=== PATIENT | male | born 1955 | race Hispanic/Latino ===

== ENCOUNTER 2018-03-05 22:33 | Observation (INO) | payer SELFPAY ==
--- NOTE | 2018-03-05 23:28 | RAD REPORT ---
EXAM DESCRIPTION: RAD - Chest Single View - 03/05/2018 11:18 pm CLINICAL HISTORY: Chest pain. COMPARISON: None. FINDINGS: Portable technique limits examination quality. Elevated right hemidiaphragm is noted, without clear etiology. The lungs are grossly clear. Trace lef t pleural fluid is suspected. The heart is upper limit of normal in size. No displaced fractures.
[2018-03-05] MEDS ORDERED: METOPROLOL TAR 50 MG TAB ONE (23:38)
[2018-03-05] MEDS ORDERED: NA CHLORIDE 0.9% 1,000 ML ONE (23:38)
[2018-03-05] MEDS ORDERED: ASPIRIN 81 MG CHEWABLE TABLET ONE (23:38)
[2018-03-05] MEDS ORDERED: FAMOTIDINE 20 MG TAB ONE (23:41)
--- NOTE | 2018-03-06 00:07 | EDPHYS ---
Physician Documentation [facility] Name: Binu Vitale Age: 62 yrs Sex: Male : 1955 Arrival Date: 03/05/2018 Time: 22:41 Bed 26 Private MD: ED Physician Jose Rafael Gallagher HPI: 03/06 00:01 This 62 yrs old Male presents to ER via Ambulatory with complaints of Chest chloe Pain. 00:01 The patient or guardian reports chest pain that is located primarily in the substernal chloe area, epigastric area, anterior chest wall, left back , flank. Onset: today, yesterday. The pain radiates to Associated signs and symptoms: The patient has no apparent associated signs or symptoms. The chest pain is described as burning, dull. Duration: The patient or guardian reports a single episode, that is still ongoing. Modifying factors: The symptoms are alleviated by nothing. the symptoms are aggravated by nothing. Severity of pain: At its worst the pain was mild moderate in the emergency department the pain has improved mildly. Historical: - Allergies: 03/05 22:43 No Known Allergies; aa1 - PMHx: 22:43 Anxiety; Depression; Hypertension; Gastric Reflux; Myocardial infarction; TIA; aa1 - PSHx: 22:43 Hernia repair; aa1 - Immunization history:: Flu vaccine is not up to date. - Social history:: Smoking status: Patient/guardian denies using tobacco. - Family history:: not pertinent. ROS: 03/06 00:01 Constitutional: Negative for fever, chills, and weight loss, Eyes: Negative for injury, chloe pain, redness, and discharge, ENT: Negative for injury, pain, and discharge, Neck: Negative for injury, pain, and swelling, Respiratory: Negative for shortness of breath, cough, wheezing, and pleuritic chest pain, Abdomen/GI: Negative for abdominal pain, nausea, vomiting, diarrhea, and constipation, : Negative for injury, bleeding, discharge, and swelling, MS/Extremity: Negative for injury and deformity, Skin: Negative for injury, rash, and discoloration, Neuro: Negative for headache, weakness, numbness, tingling, and seizure, Psych: Negative for depression, anxiety, suicide ideation, homicidal ideation, and hallucinations, Allergy/Immunology: Negative for hives, rash, and allergies, Endocrine: Negative for neck swelling, polydipsia, polyuria, polyphagia, and marked weight changes, Hematologic/Lymphatic: Negative for swollen nodes, abnormal bleeding, and unusual bruising. Cardiovascular: Positive for chest pain. Abdomen/GI: Positive for abdominal pain, abdominal cramps. Exam: 00:03 Constitutional: This is a well developed, well nourished patient who is awake, alert, chloe and in no acute distress. Head/Face: Normocephalic, atraumatic. Eyes: Pupils equal round and reactive to light, extra-ocular motions intact. Lids and lashes normal. Conjunctiva and sclera are non-icteric and not injected. Cornea within normal limits. Periorbital areas with no swelling, redness, or edema. ENT: Nares patent. No nasal discharge, no septal abnormalities noted. Tympanic membranes are normal and external auditory canals are clear. Oropharynx with no redness, swelling, or masses, exudates, or evidence of obstruction, uvula midline. Mucous membranes moist. Neck: Trachea midline, no thyromegaly or masses palpated, and no cervical lymphadenopathy. Supple, full range of motion without nuchal rigidity, or vertebral point tenderness. No Meningismus. Chest/axilla: Normal chest wall appearance and motion. Nontender with no deformity. No lesions are appreciated. Cardiovascular: Regular rate and rhythm with a normal S1 and S2. No gallops, murmurs, or rubs. Normal PMI, no JVD. No pulse deficits. Respiratory: Lungs have equal breath sounds bilaterally, clear to auscultation and percussion. No rales, rhonchi or wheezes noted. No increased work of breathing, no retractions or nasal flaring. Abdomen/GI: Soft, non-tender, with normal bowel sounds. No distension or tympany. No guarding or rebound. No evidence of tenderness throughout. Back: No spinal tenderness. No costovertebral tenderness. Full range of motion. Male : Normal genitalia with no discharge or lesions. Skin: Warm, dry with normal turgor. Normal color with no rashes, no lesions, and no evidence of cellulitis. MS/ Extremity: Pulses equal, no cyanosis. Neurovascular intact. Full, normal range of motion. Neuro: Awake and alert, GCS 15, oriented to person, place, time, and situation. Cranial nerves II-XII grossly intact. Motor strength 5/5 in all extremities. Sensory grossly intact. Cerebellar exam normal. Normal gait. Psych: Awake, alert, with orientation to person, place and time. Behavior, mood, and affect are within normal limits. 00:03 Musculoskeletal/extremity: DVT Exam: No signs of deep vein thrombosis. no pain, no swelling, no tenderness, negative Homans' sign noted on exam, no appreciated bluish discoloration, no erythema, no increased warmth. Vital Signs: 03/05 22:43 BP 142 / 91; Pulse 78; Resp 20; Temp 97.3; Pulse Ox 98% on R/A; Weight 91.17 kg; Height aa1 5 ft. 8 in. (172.72 cm); Pain 7/10; 03/06 00:29 BP 149 / 98; Pulse 70; Resp 14; Pulse Ox 97% on R/A; kr2 01:00 BP 118 / 87; Pulse 67; Resp 17; Pulse Ox 98% on R/A; rk2 02:55 BP 131 / 95; Pulse 72; Resp 17; Pulse Ox 98% on R/A; rk2 03/05 22:43 Body Mass Index 30.56 (91.17 kg, 172.72 cm) aa1 MDM: 03/05 22:56 Patient medically screened. [facility] 03/06 00:04 Data reviewed: vital signs, nurses notes, lab test result(s), EKG, radiologic studies. [facility] 03/05 22:58 Order name: Basic Metabolic Panel; Complete Time: 01:15 [facility] 03/05 22:58 Order name: BNP; Complete Time: 01:15 [facility] 03/05 22:58 Order name: CBC with Diff; Complete Time: 00:43 [facility] 03/05 22:58 Order name: Ckmb; Complete Time: 01:15 [facility] 03/05 22:58 Order name: CPK; Complete Time: 01:15 [facility] 03/05 22:58 Order name: LFT's; Complete Time: 01:15 [facility] 03/05 22:58 Order name: Magnesium; Complete Time: 01:15 [facility] 03/05 22:58 Order name: PT-INR; Complete Time: 00:43 [facility] 03/05 22:58 Order name: Ptt, Activated; Complete Time: 00:43 [facility] 03/05 22:58 Order name: Troponin (emerg Dept Use Only); Complete Time: 01:15 [facility] 03/05 22:58 Order name: Lipase; Complete Time: 01:15 [facility] 03/06 00:01 Order name: Urine Culture [facility] 03/06 00:43 Order name: Urine Dipstick--Ancillary (enter results) [facility] 03/06 02:01 Order name: Urine Dipstick-Ancillary; Complete Time: 02:19 [facility] 03/05 22:58 Order name: XRAY Chest (1 view); Complete Time: 00:01 [facility] 03/05 22:58 Order name: EKG; Complete Time: 22:58 [facility] 03/05 22:58 Order name: Cardiac monitoring; Complete Time: 23:47 [facility] 03/05 22:58 Order name: EKG - Nurse/Tech; Complete Time: 23:47 [facility] 03/05 22:58 Order name: IV Saline Lock; Complete Time: 23:47 [facility] 03/06 00:01 Order name: CT Aorta for Dissection [facility] 03/06 00:15 Order name: CONS Physician Consult [facility] 03/05 22:58 Order name: Labs collected and sent; Complete Time: 23:47 [facility] 03/05 22:58 Order name: O2 Per Protocol; Complete Time: 23:47 [facility] 03/05 22:58 Order name: O2 Sat Monitoring; Complete Time: 23:47 [facility] 03/05 22:58 Order name: Urine Dipstick-Ancillary (obtain specimen); Complete Time: 00:29 [facility] Administered Medications: 03/05 23:46 Drug: NS 0.9% 1000 ml Route: IV; Rate: 125 ml/hr; Site: right antecubital; kr2 23:46 Drug: Aspirin Chewable Tablet 324 mg Route: PO; 2 03/06 00:18 Follow up: Response: No adverse reaction [facility] 03/05 23:46 Drug: Pepcid 20 mg Route: IVP; Site: right antecubital; kr2 03/06 00:17 Follow up: Response: No adverse reaction [facility] 03/05 23:46 Drug: Lopressor (metoprolol TARTRATE) 50 mg Route: PO; 2 03/06 00:17 Follow up: Response: No adverse reaction kr2 00:17 Not Given (medication not available): fentaNYL (PF) 25 mcg IVP once kr2 00:17 CANCELLED (med not available): fentaNYL (PF) 25 mcg IVP once kr2 00:18 Drug: Zofran 4 mg Route: IVP; Site: right antecubital; kr2 01:27 Follow up: Response: No adverse reaction rk2 00:18 Drug: ProTONIX 40 mg Route: IVP; Site: right antecubital; kr2 01:27 Follow up: Response: No adverse reaction rk2 00:24 Drug: morphine 4 mg Route: IVP; Site: right antecubital; kr2 01:26 Follow up: Response: No adverse reaction rk2 Disposition: 03/06/18 00:06 Hospitalization ordered by Bailey Millard for Observation. Preliminary diagnosis are Other chest pain, Gastro-esophageal reflux disease, Anxiety disorder, unspecified. - Bed requested for Telemetry/MedSurg (observation). - Status is Observation. rk2 - Condition is Stable. - Problem is new. - Symptoms have improved. UTI on Admission? No Signatures: Dispatcher [employer] EDMS Marissa Josue RN RN kl Kern, Alissa, RN RN aa1 Jose Rafael Gallagher MD MD cha Reaves, Karey, RN RN kr2 Anca Childs RN RN rk2 Corrections: (The following items were deleted from the chart) 00:17 00:01 fentaNYL (PF) 25 mcg IVP once ordered. chloe kr2 01:24 00:06 Hospitalization Ordered by Bailey Millard MD for Observation. Preliminary kl diagnosis is Other chest pain; Gastro-esophageal reflux disease; Anxiety disorder, unspecified. Bed requested for Telemetry/MedSurg (observation). Status is Observation. Condition is Stable. Problem is new. Symptoms have improved. UTI on Admission? No. chloe 03:13 01:24 03/06/2018 00:06 Hospitalization Ordered by Bailey Millard MD for Observation. rk2 Preliminary diagnosis is Other chest pain; Gastro-esophageal reflux disease; Anxiety disorder, unspecified. Bed requested for Telemetry/MedSurg (observation). Status is Observation. Condition is Stable. Problem is new. Symptoms have improved. UTI on Admission? No. kl
--- NOTE | 2018-03-06 00:07 | ER ---
Nurse's Notes [facility] Name: Binu Vitale Age: 62 yrs Sex: Male : 1955 Arrival Date: 03/05/2018 Time: 22:41 Bed 26 Private MD: Diagnosis: Other chest pain;Gastro-esophageal reflux disease;Anxiety disorder, unspecified Presentation: 03/05 22:41 Presenting complaint: Patient states: CP and SOB for past several days. Reports the aa1 last time he had this he was told he had acid reflux. States, "When I lay down I feel like my food is coming up.". Transition of care: patient was not received from another setting of care. Onset of symptoms was March 02, 2018. Initial Sepsis Screen: Does the patient meet any 2 criteria? No. Patient's initial sepsis screen is negative. Does the patient have a suspected source of infection? No. Patient's initial sepsis screen is negative. Care prior to arrival: None. 22:41 Method Of Arrival: Ambulatory aa1 22:41 Acuity: BASHIR 3 aa1 Historical: - Allergies: 22:43 No Known Allergies; aa1 - PMHx: 22:43 Anxiety; Depression; Hypertension; Gastric Reflux; Myocardial infarction; TIA; aa1 - PSHx: 22:43 Hernia repair; aa1 - Immunization history:: Flu vaccine is not up to date. - Social history:: Smoking status: Patient/guardian denies using tobacco. - Family history:: not pertinent. Screenin:00 Abuse screen: Denies threats or abuse. Denies injuries from another. Nutritional kr2 screening: No deficits noted. Tuberculosis screening: No symptoms or risk factors identified. Fall Risk None identified. Assessment: 23:00 General: Appears in no apparent distress. comfortable, well groomed, well developed, kr2 well nourished, Behavior is cooperative, anxious. Pain: Complains of pain in diaphragm, xyphoid area and mid-sternal area Pain radiates to back Pain currently is 6 out of 10 on a pain scale. Quality of pain is described as squeezing, Pain began suddenly, Is continuous, Alleviated by nothing. Neuro: Level of Consciousness is awake, alert, obeys commands, Oriented to person, place, time, situation. Cardiovascular: Capillary refill < 3 seconds in bilateral fingers Patient's skin is warm and dry. Rhythm is sinus rhythm. Respiratory: Airway is patent Respiratory effort is even, unlabored, Respiratory pattern is regular, symmetrical. GI: Abdomen is round non-distended, Bowel sounds present X 4 quads. Abd is soft X 4 quads Abdomen is tender to palpation in epigastric area. GI: Reports bloating, gaseousness, nausea, he has problems with reflux. : No signs and/or symptoms were reported regarding the genitourinary system. Denies burning with urination. EENT: Nares are clear Oral mucosa is moist. Derm: Skin is intact, is healthy with good turgor, Skin is pink, warm \\T\\ dry. Musculoskeletal: Circulation, motion, and sensation intact. 03/06 00:28 Reassessment: Patient appears in no apparent distress at this time. Patient and/or kr2 family updated on plan of care and expected duration. Pain level reassessed. Patient is alert, oriented x 3, equal unlabored respirations, skin warm/dry/pink. 01:02 Reassessment: Taken to CT by tech. rk2 01:25 Reassessment: Pt. returned from CT. rk2 03:11 Reassessment: Called report to receiving KALI Block... pt. transported to room by tech in rk2 wheelchair. Vital Signs: 03/05 22:43 BP 142 / 91; Pulse 78; Resp 20; Temp 97.3; Pulse Ox 98% on R/A; Weight 91.17 kg; Height aa1 5 ft. 8 in. (172.72 cm); Pain 7/10; 03/06 00:29 BP 149 / 98; Pulse 70; Resp 14; Pulse Ox 97% on R/A; kr2 01:00 BP 118 / 87; Pulse 67; Resp 17; Pulse Ox 98% on R/A; rk2 02:55 BP 131 / 95; Pulse 72; Resp 17; Pulse Ox 98% on R/A; rk2 03/05 22:43 Body Mass Index 30.56 (91.17 kg, 172.72 cm) aa1 ED Course: 03/05 22:41 Patient arrived in ED. aa1 22:43 Triage completed. aa1 22:44 Arm band placed on left wrist. Patient placed in an exam room, on a stretcher. aa1 22:56 Jose Rafael Gallagher MD is Attending Physician. chloe 23:00 Patient has correct armband on for positive identification. Bed in low position. Call kr2 light in reach. Side rails up X2. Adult w/ patient. surveillance monitor on. Pulse ox on. NIBP on. Door closed. Warm blanket given. Head of bed elevated. 23:00 Patient maintains SpO2 saturation greater than 95% on room air. kr2 23:17 X-ray completed. Portable x-ray completed in exam room. Patient tolerated procedure kw well. 23:17 XRAY Chest (1 view) In Process Unspecified. EDMS 23:36 Zulma Coronel, RN is Primary Nurse. kr2 03/06 00:05 Bailey Milladr MD is Hospitalizing Provider. chloe 00:15 Radiology exam delayed due to lab results not completed at this time. (BUN/Creatinine). vr 00:30 Urine collected: clean catch specimen, clear. aa1 00:59 Primary Nurse role handed off by Zulma Coronel, RN rg2 01:23 Anca Childs, KALI is Primary Nurse. rk2 01:28 CT Aorta for Dissection Sent. rk2 03:12 No provider procedures requiring assistance completed. Patient admitted, IV remains in rk2 place. Administered Medications: 03/05 23:46 Drug: NS 0.9% 1000 ml Route: IV; Rate: 125 ml/hr; Site: right antecubital; kr2 23:46 Drug: Aspirin Chewable Tablet 324 mg Route: PO; kr2 03/06 00:18 Follow up: Response: No adverse reaction 2 03/05 23:46 Drug: Pepcid 20 mg Route: IVP; Site: right antecubital; kr2 03/06 00:17 Follow up: Response: No adverse reaction kr2 03/05 23:46 Drug: Lopressor (metoprolol TARTRATE) 50 mg Route: PO; kr2 03/06 00:17 Follow up: Response: No adverse reaction kr2 00:17 Not Given (medication not available): fentaNYL (PF) 25 mcg IVP once kr2 00:17 CANCELLED (med not available): fentaNYL (PF) 25 mcg IVP once kr2 00:18 Drug: Zofran 4 mg Route: IVP; Site: right antecubital; kr2 01:27 Follow up: Response: No adverse reaction rk2 00:18 Drug: ProTONIX 40 mg Route: IVP; Site: right antecubital; kr2 01:27 Follow up: Response: No adverse reaction rk2 00:24 Drug: morphine 4 mg Route: IVP; Site: right antecubital; kr2 01:26 Follow up: Response: No adverse reaction rk2 Outcome: 00:06 Decision to Hospitalize by Provider. chloe 03:12 Admitted to Tele rk2 03:12 Admitted to Tele accompanied by tech, via wheelchair. 03:12 Condition: good 03:12 Instructed on the need for admit. 03:13 Patient left the ED. rk2 Signatures: Dispatcher [employer] EDMS Tita Workman2 Cecy Granda RN RN aa1 Jose Rafael Gallagher MD MD cha Davis, Victoria vr Whitley, Kimberlee kw Reaves, Karey RN RN kr2 Anca Childs RN RN rk2 Corrections: (The following items were deleted from the chart) 03/05 23:47 23:46 Pepcid 20 mg IVP in left antecubital kr2 kr2 23:47 23:46 NS 0.9% 1000 ml IV at 125 ml/hr in left antecubital kr2 kr2
[2018-03-06] MEDS ORDERED: MORPHINE 4 MG/ML SYR ONE (00:09)
[2018-03-06] MEDS ORDERED: ONDANSETRON 4 MG/2 ML VIAL ONE (00:09)
[2018-03-06] MEDS ORDERED: PANTOPRAZOLE 40 MG INJ ONE (00:10)
[2018-03-06 00:14] LABS: Protime INR 0.92
[2018-03-06 00:21] LABS: Absolute Lymphocytes (CBC) 2.6 K/uL (0.7-4.9); Absolute Monocytes 0.6 K/uL (0.1-1.3); Basophils % 0.6 % (0-1.3); Eosinophils % 1.6 % (0-4.4); Hematocrit 35.8 % (39.6-49.0); Lymphocytes % 41.4 % (15.3-44.8); MCH 23.8 pg (27.0-35.0); MCV 72.5 fL (80-100); MPV 8.3 fL (7.6-11.3); Monocytes % 8.8 % (3.3-12.3); RBC Red Blood Cell Count 4.95 M/uL (4.33-5.43)
[2018-03-06 00:49] LABS: Bicarbonate 23 mEq/L (21-31); Glucose Level 118 mg/dL (65-120); Lipase 56 U/L (22-51); Sodium Level 135 mEq/L (135-145)
[2018-03-06 00:51] LABS: CKMB Creatine Kinase MB 1.2 ng/ml (0.3-4.0)
[2018-03-06 00:55] LABS: ALT/SGPT 26 IU/L (10-60); AST/SGOT 24 IU/L (10-42); Albumin 3.7 g/dL (3.2-5.5); Alkaline Phosphatase 108 IU/L (42-121); BUN Blood Urea Nitrogen 22 mg/dL (6-20); Bilirubin Direct < 0.1 mg/dL (0-0.2); Bilirubin Total 0.4 mg/dL (0.3-1.2); Creatine Phosphokinase 44 IU/L (22-269); Protein, Total 6.9 g/dL (6.0-8.3)
[2018-03-06 02:00] LABS: Urine Glucose NEGATIVE (NEG)
[2018-03-06 02:01] LABS: Urine Blood NEGATIVE (NEG); Urine Protein NEGATIVE (NEG); Urine pH 5.5 (5.0-7.0)
--- NOTE | 2018-03-06 02:48 | P.HP ---
Certification for Inpatient Patient admitted to: Observation With expected LOS: <2 Midnights Practitioner: I am a practitioner with admitting privileges, knowledge of patient current condition, hospital course, and medical plan of care. Services: Services provided to patient in accordance with Admission requirements found in Title 42 Section 412.3 of the Code of Federal Regulations Patient History Date of Service: 03/06/18 Reason for admission: severe dispepsia, gastritis History of Present Illness: Mr Vitale is a 62 years old male with history of CAD, GERD who has recurrent epigastric pain on and off for the last 5 years. However, he came to ER today since the pain was significantly worse, radiated to his chest, pressure like. He has had nausea and vomiting, sometimes coffee-ground emesis. He denied any bloody or black stools, no bloody vomiting either. He has never seen a GI specialist. At my encounter the pain improved after receive pain medication, but still badder him some. No fever or chills. Allergies No Known Allergies Allergy (Unverified 03/06/18 00:25) - Past Medical/Surgical History -: CAD -: GERD -: Anxiety -: depression -: hernia repair - Family History Family History: Reviewed- Non-Contributory - Social History Smoking Status: Former smoker Alcohol use: No CD- Drugs: No Caffeine use: Yes Place of Residence: Home Review of Systems 10-point ROS is otherwise unremarkable Physical Examination - Physical Exam General: Alert, In no apparent distress HEENT: Atraumatic, PERRLA, Mucous membr. moist/pink, EOMI, Sclerae nonicteric Neck: Supple, 2+ carotid pulse no bruit, No LAD, Without JVD or thyroid abnormality Respiratory: Clear to auscultation bilaterally, Normal air movement Cardiovascular: Regular rate/rhythm, Normal S1 S2 Gastrointestinal: Normal bowel sounds, Tenderness (epigastic and RUQ.) Musculoskeletal: No tenderness Integumentary: No rashes Neurological: Normal gait, Normal speech, Normal strength at 5/5 x4 extr, Normal tone, Normal affect Lymphatics: No axilla or inguinal lymphadenopathy - Studies Laboratory Data (last 24 hrs) 03/05/18 23:30: PT 10.8, INR 0.92, APTT 26.2 03/05/18 23:30: WBC 6.3, Hgb 11.8 L, Hct 35.8 L, Plt Count 288 03/05/18 23:30: B-Natriuretic Peptide < 10 03/05/18 23:30: Sodium 135, Potassium 4.0, BUN 22 H, Creatinine 0.88, Glucose 118, Magnesium 2.0, Total Bilirubin 0.4, AST 24, ALT 26, Alkaline Phosphatase 108, Lipase 56 H Assessment and Plan - Problems (Diagnosis) (1) Dyspepsia Current Visit: Yes Status: Acute (2) GERD (gastroesophageal reflux disease) Current Visit: Yes Status: Acute Qualifiers: Esophagitis presence: with esophagitis Qualified Code(s): K21.0 - Gastro- esophageal reflux disease with esophagitis (3) Chest pain Current Visit: Yes Status: Acute Qualifiers: Chest pain type: other chest pain Qualified Code(s): R07.89 - Other chest pain; R07.8 - Other chest pain - Plan Mr Vitale will be admitted to the hospital due to dispepsia, chest pain and severe GERD. Will order PPI, keep him NPO until GI evaluation, for potential EGD. Hgb is low but definitively no need for transfusion. - Advance Directives Does patient have a Living Will: No Does patient have a Durable POA for Healthcare: No - Code Status/Comfort Care Code Status Assessed: Yes Code Status: Full Code
[2018-03-06] MEDS ORDERED: ONDANSETRON 4 MG/2 ML VIAL IV PRN (03:00)
[2018-03-06] MEDS: NA CHLORIDE 0.9% 1,000 ML IV SCH ×2 (03:00→13:00)
[2018-03-06] MEDS ORDERED: SODIUM CHLORIDE 0.9% 10ML INJ IV PRN (03:00)
[2018-03-06] MEDS: PANTOPRAZOLE 40 MG INJ IVP SCH ×2 (03:00→09:59)
[2018-03-06] MEDS: INSULIN -REGULAR HUMAN 50 UNIT/0.5 ML ML SQ SCH ×2 (07:30→11:30)
--- NOTE | 2018-03-06 08:41 | RAD REPORT ---
EXAM DESCRIPTION: CT - Angio Aorta For Dissection - 03/06/2018 7:29 am CLINICAL HISTORY: Chest pain radiating to the back. COMPARISON: None. TECHNIQUE: CT angiography of the aorta was performed with volume rendering. All CT scans are performed using dose optimization technique as appropriate and may include automated exposure control or mA/KV adjustment according to patient size. FINDINGS: A left aortic arch is present with normal branching pattern of the great vessels.No acute aortic finding is seen such as aneurysm, penetrating ulcer or dissection. The celiac axis, SMA, ERENDIRA and renal arteries are widely patent. No evidence of pulmonary embolism. The lungs are clear. Small axial hiatal hernia is seen. The liver demonstrates no focal mass or biliary dilatation.The spleen, pancreas, adrenal glands and k idneys are within normal limits for arterial phase imaging.18 mm low-density renal lesion on the righ t has the appearance of a benign cyst. No bowel obstruction, free fluid or abscess.Sigmoid diverticulosis coli is present without findings o f acute diverticulitis.No pathologic enlarged lymphadenopathy identified. No fracture or worrisome bone lesion seen.Large fat containing right inguinal hernia. Prominent degenerative change at L5-S1 noted. IMPRESSION: No acute aortic finding is demonstrated. Small axial hiatal hernia. Large right inguinal hernia containing fat.
--- NOTE | 2018-03-06 10:04 | EKG ---
Test Date: 2018-03-05 Test Time: 22:53:47 Spring Tacker: FAUSTO MEASUREMENT RESULTS: Intervals: Rate: 88 OK: 158 QRSD: 88 QT: 378 QTc: 457 [place]: P: -6 OK: 158 QRS: 2 T: 20 INTERPRETIVE STATEMENTS: Normal sinus rhythm Normal ECG No previous ECG available for comparison Electronically Signed On 03-06-18 10:02:57 CDT by Ashish Osei
--- NOTE | 2018-03-06 11:04 | TREADMILL ---
70% H.R.: 109 85% H.R.: 133 90% H.R.: 140 100% H.R.: 156 DX: CHEST PAIN Date of Study: 03/06/18 Ht: 5 8 Wt: 201 lb 0 oz Consulting Physician: MALINDA MEDICATIONS: NOVOLIN-R, ZOFRAN, PROTONIX. HISTORY: 62 YEAR OLD MALE WITH COMPLAINTS OF CHEST PAIN. MEDICAL HISTORY: ANXIETY, DEPRESSION, HYPERTENSION, GASTROENTESTINAL REFLUX DISEASE, MYOCARDIAL INFARCTION, TRANSIENT ISCHEMIC ATTACK PHYSICIAL EXAMINATION: RESTING B.P.: 136/93 RESTING H.R.: 66 RESTING EKG: NORMAL. PROTOCOL: MELODY ROUTINE EXERCISE TIME: 8:38 MAXIMUM HEART RATE: 133 85 % OF PREDICTED B.P. AT PEAK STRESS: 127/90 H.R. AT 1 MINUTE POST EXERCISE: 120 IMPRESSION: MELODY ROUTINE STOPPED DUE TO FATIGUE AND TARGET HEART RATE REACHED PER PROTOCOL. NO SUPRA VENTRICULAR TACHYCARDIA, NO VENTRICULAR TACHYCARDIA. OCCASIONAL PREMATURE VENTRICULAR COMPLEXES. NO SIGNIFICANT ST CHANGES WITH STRESS.
--- NOTE | 2018-03-06 11:12 | ECHO ---
HEIGHT: 5 ft 8 in WEIGHT: 201 lb 0 oz DATE OF STUDY: 03/06/[address]: Ashish Osei MD 2-DIMENSIONAL: YES M.MODE: YES DOPPLER: YES COLOR FLOW: YES TDS: NO PORTABLE: NO DEFINITY: NO BUBBLE STUDY: NO DIAGNOSIS: CHEST PAIN CARDIAC HISTORY: CATHERIZATION: SURGERY: PROSTHETIC VALVE: PACEMAKER: MEASUREMENTS (cm) DIASTOLIC (NORMALS) SYSTOLIC (NORMALS) IVSd 1.2 (0.6-1.2) LA Diam 3.7 (1.9-4.0) LVEF 76% LVIDd 4.8 (3.5-5.7) LVIDs 2.7 (2.0-3.5) %FS 45% LVPWd 1.2 (0.6-1.2) Ao Diam 4.0 (2.0-3.7) 2 DIMENSIONAL ASSESSMENT: RIGHT ATRIUM: NORMAL LEFT ATRIUM: NORMAL RIGHT VENTRICLE: NORMAL LEFT VENTRICLE: LEFT VENTRICULAR HYPERTROPHY TRICUSPID VALVE: NORMAL MITRAL VALVE: NORMAL PULMONIC VALVE: NORMAL AORTIC VALVE: NORMAL PERICARDIAL EFFUSION: NONE AORTIC ROOT: NORMAL LEFT VENTRICULAR WALL MOTION: NORMAL. DOPPLER/COLOR FLOW: MILD MITRAL REGURGITATION. COMMENTS: NORMAL LEFT VENTRICULAR EJECTION FRACTION. LEFT VENTRICULAR HYPERTROPHY. MILD MITRAL REGURGITATION. TECHNOLOGIST: JAME GARCIA [facility]
[2018-03-06] MEDS ORDERED: ALPRAZOLAM 1 MG TABLET PO PRN (13:00)
--- NOTE | 2018-03-06 14:37 | CON ---
Date of Consultation: 03/06/[address] Atkinson's service on 03/06/2018. I saw the patient on 03/06/2018. Reason For Consultation: Chest pain. History Of Present Illness: Mr. Vitale is a 62-year-old male with a history of hyp ertension, anxiety, gastroesophageal reflux disease, came in with mid-epigastric chest pain radiating to the back and to the right chest with nausea, but no vomiting or diaphoresis. He is slightly shor t of breath, sometimes it lasted for 36 hours. He still has his gallbladder. Denied PND, orthopnea, pedal edema, palpitations, or syncope. By the time I saw him, the workup was negative, except for a n elevated right-sided diaphragm. Troponin, MBs, and CPK are negative. Past Medical History: As stated above. Allergies: HE IS ALLERGIC TO IBUPROFEN. Medications: At home include Xanax, Toprol, Cozaar, Prilosec. Review of Systems: Negative. Social History: Negative. Family History: Negative. Physical Examination: Vital Signs: Stable. He is afebrile. HEENT: Negative. Neck: Supple with no bruit. Chest: Clear. Cardiac: Normal. No murmurs, gallops, rubs. Abdomen: Benign. Extremities: Revealed no clubbing, cyanosis, or edema. Impression And Plan: Mr. Vitale's symptoms are most likely secondary to gastroesophageal reflux d isease or possibly gastritis, esophagitis or maybe gallbladder disease. I recommended a gallbladder ultrasound. Ordered him to have an echocardiogram routine and a routine stress test prior to making any final decision. The blood pressure is fairly well controlled. NAM/JOCE Voice ID: [id number] Report ID: [id number]
--- NOTE | 2018-03-06 14:45 | RAD REPORT ---
EXAM DESCRIPTION: US - Abdomen Exam Complete - 03/06/2018 2:29 pm CLINICAL HISTORY: Abdominal pain COMPARISON: CT study same date FINDINGS: Gallbladder size is normal. No gallstones, wall thickening or pericholecystic fluid. Commo n bile duct is normal with no common duct stone identified. Liver and spleen are normal in size. No f ocal parenchymal lesions. Liver echogenicity suggests fatty infiltration. The left lobe was not optim ally visualized. The pancreas is obscured. No hydronephrosis or suspicious mass in either kidney. Posterior mid right renal cyst noted similar t o the CT study. Aorta is obscured. No ascites or bulky lymphadenopathy. IMPRESSION: No gallbladder or biliary tree abnormality. Left lobe of the liver, pancreas and aorta were poorly visualized. No abnormality seen on the CT stud y from the same date. Fatty infiltration of the liver.
--- NOTE | 2018-03-06 15:48 | P.DS ---
Admission Date: 03/06/18 Discharge Date: 03/06/18 Disposition: ROUTINE DISCHARGE Discharge Condition: FAIR Reason for Admission: severe dispepsia, gastritis Consultations: Student Outreach Coordinator Dr. Osei GI doctor [place] Procedures: Exercise stress test negative - Problems (1) Chest pain Onset Date: 03/06/18 Current Visit: Yes Status: Acute Qualifiers: Chest pain type: other chest pain Qualified Code(s): R07.89 - Other chest pain; R07.8 - Other chest pain (2) Dyspepsia Onset Date: 03/06/18 Current Visit: Yes Status: Acute (3) GERD (gastroesophageal reflux disease) Onset Date: 03/06/18 Current Visit: Yes Status: Acute Qualifiers: Esophagitis presence: with esophagitis Qualified Code(s): K21.0 - Gastro- esophageal reflux disease with esophagitis Brief History of Present Illness: From H&P Mr Vitale is a 62 years old male with history of CAD, GERD who has recurrent epigastric pain on and off for the last 5 years. However, he came to ER today since the pain was significantly worse, radiated to his chest, pressure like. He has had nausea and vomiting, sometimes coffee-ground emesis. He denied any bloody or black stools, no bloody vomiting either. He has never seen a GI specialist. At my encounter the pain improved after receive pain medication, but still badder him some. No fever or chills. Hospital Course: Patient is a 62-year-old male who was admitted to the hospital for chest pain and dyspepsia. Patient was ruled out for ACS cardiac enzymes were negative troponin did not show any acute changes. Patient was seen by cardiology who recommended exercise stress test. Stress test was negative. Patient's symptoms improved. Patient's symptoms were likely atypical and GI in origin patient does have history of GERD and complains of some acid reflux type symptoms. Patient had abdominal ultrasound which showed fatty liver disease however no gallbladder pathology or dilated biliary tree. Patient was seen by GI and was cleared from their standpoint. Patient was then discharged home in a stable condition. Patient was recommended to establish primary care physician locally however states that she has family in the [place] and prefers to seek medical care at that facility Vital Signs/Physical Exam: Temp Pulse Resp BP Pulse Ox 97.1 F 78 17 134/82 94 03/06/18 12:00 03/06/18 12:00 03/06/18 12:00 03/06/18 12:00 03/06/18 12:00 General: Alert, In no apparent distress, Oriented x3 HEENT: Atraumatic, PERRLA, EOMI Neck: Supple, JVD not distended Respiratory: Clear to auscultation bilaterally, Normal air movement Cardiovascular: No edema, Normal pulses, Regular rate/rhythm, Normal S1 S2 Gastrointestinal: Normal bowel sounds, Soft and benign, Non-distended, No tenderness Musculoskeletal: No clubbing, No tenderness Integumentary: No rashes, No erythema Neurological: Normal speech, Normal strength at 5/5 x4 extr, Normal tone, Normal affect Laboratory Data at Discharge: WBC 6.3 K/uL (4.3-10.9) 03/05/18 23:30 Hgb 11.8 g/dL (13.6-17.9) L 03/05/18 23:30 Hct 35.8 % (39.6-49.0) L 03/05/18 23:30 Plt Count 288 K/uL (152-406) 03/05/18 23:30 PT 10.8 SECONDS (9.5-12.5) 03/05/18 23:30 INR 0.92 03/05/18 23:30 APTT 26.2 SECONDS (24.3-36.9) 03/05/18 23:30 Sodium 135 mEq/L (135-145) 03/05/18 23:30 Potassium 4.0 mEq/L (3.6-5.0) 03/05/18 23:30 BUN 22 mg/dL (6-20) H 03/05/18 23:30 Creatinine 0.88 mg/dL (0.61-1.24) 03/05/18 23:30 Glucose 118 mg/dL (65-120) 03/05/18 23:30 Magnesium 2.0 mg/dL (1.8-2.5) 03/05/18 23:30 Total Bilirubin 0.4 mg/dL (0.3-1.2) 03/05/18 23:30 AST 24 IU/L (10-42) 03/05/18 23:30 ALT 26 IU/L (10-60) 03/05/18 23:30 Alkaline Phosphatase 108 IU/L (42-121) 03/05/18 23:30 Troponin I < 0.03 ng/mL (<0.03) 03/06/18 04:55 B-Natriuretic Peptide < 10 pg/ml (<=100) 03/05/18 23:30 Lipase 39 U/L (22-51) 03/06/18 04:55 Home Medications: Alprazolam [Xanax] 1 mg PO BEDTIME PRN 03/06/18 Losartan Potassium [Cozaar*] 50 mg PO DAILY 03/06/18 Metoprolol Succinate [Toprol Xl] 100 mg PO DAILY 03/06/18 Omeprazole [Prilosec] 40 mg PO DAILY 03/06/18 Patient Discharge Instructions: f/up w PCP in 2-3 days. f/up w GI Dr. Lemos in 4 weeks. f/up w single needle operator Dr. Osei in 2 weeks. Return to ER for worsening condition Diet: AHA Activity: Ad deisy
[2018-03-07] MEDS ORDERED: PANTOPRAZOLE 40MG TABLET PO SCH (07:30)
[2018-03-07] MEDS ORDERED: METOPROLOL XL 100 MG TAB PO SCH (09:00)
[2018-03-07] MEDS ORDERED: HOME MED 1 EA UNK (Omeprazole [Prilosec] 40 MG) PO SCH (09:00)
[2018-03-07] MEDS ORDERED: LOSARTAN POTASSIUM 50 MG TABLET PO SCH (09:00)
== END 2018-03-06 16:54 | disposition home or self-care (01) ==
LOC: ER 22:33 → ERHOLD 03-06 00:18 → 2ND 03-06 01:26
PROVIDERS: ADMIT Internal Medicine; ATTEND Internal Medicine
DX: R07.9 Chest pain, unspecified (principal); R10.13 Epigastric pain; K21.0 Gastro-esophageal reflux disease with esophagitis; K76.0 Fatty (change of) liver, not elsewhere classified; I25.10 Atherosclerotic heart disease of native coronary artery without angina pectoris
CPT/HCPCS: 36415; 71045; 71275; 74175; 76700; 80048; 80076; 81003; 82550; 82553; 82962; 83690; 83735; 83880; 84484; 85025; 85610; 85730; 87086; 87088; 93005; 93017; 93306; 96374; 96375; 99285; C9113; G0378; J2405; J7030; Q9967

== ENCOUNTER 2018-04-13 00:36 | Emergency (ER) | payer SELFPAY ==
[2018-04-13] MEDS ORDERED: MAGNE/ALUM HYDROXD 30 ML UCUP ONE (01:16)
[2018-04-13] MEDS ORDERED: FAMOTIDINE 20 MG/2 ML VIAL IV ONE (01:17)
[2018-04-13] MEDS ORDERED: ONDANSETRON 4 MG/2 ML VIAL ONE (01:17)
[2018-04-13] MEDS ORDERED: LIDOCAINE VISCOUS 2% SOLN 15 ML UDC ONE (01:17)
[2018-04-13 01:31] LABS: Absolute Lymphocytes (CBC) 1.8 K/uL (0.7-4.9); Absolute Monocytes 0.6 K/uL (0.1-1.3); Absolute Neutrophil 2.6 K/uL (1.8-8.0); Basophils % 0.5 % (0-1.3); Eosinophils % 2.3 % (0-4.4); Hematocrit 32.1 % (39.6-49.0); MCH 23.4 pg (27.0-35.0); MCV 71.9 fL (80-100); MPV 8.3 fL (7.6-11.3); Monocytes % 11.6 % (3.3-12.3); RBC Red Blood Cell Count 4.46 M/uL (4.33-5.43)
[2018-04-13 01:36] LABS: Bicarbonate 30 mEq/L (21-31); Glucose Level 100 mg/dL (65-120); Lipase 33 U/L (22-51); Potassium 3.5 mEq/L (3.6-5.0); Sodium Level 139 mEq/L (135-145)
[2018-04-13 01:42] LABS: ALT/SGPT 19 IU/L (10-60); AST/SGOT 22 IU/L (10-42); Alkaline Phosphatase 102 IU/L (42-121); BUN Blood Urea Nitrogen 13 mg/dL (6-20); Bilirubin Direct < 0.1 mg/dL (0-0.2); Bilirubin Total 0.5 mg/dL (0.3-1.2); Protein, Total 7.4 g/dL (6.0-8.3)
--- NOTE | 2018-04-13 04:48 | ER ---
Nurse's Notes [facility] Name: Binu Vitale Age: 62 yrs Sex: Male : 1955 Arrival Date: 04/13/2018 Time: 00:37 Bed 6 Private MD: Diagnosis: Hiatal Hernia Presentation: 04/13 00:45 Presenting complaint: Patient states: that he is having upper abd pain, nausea and fc vomiting that started yesterday along with bloating. Recently diagnosis with hiatal hernia and needs surg but has not had follow up with Dr Lemos to refer him to surgeon. Transition of care: patient was not received from another setting of care. Onset of symptoms was April 12, 2018. Risk Assessment: Do you want to hurt yourself or someone else? Patient reports no desire to harm self or others. Initial Sepsis Screen: Does the patient meet any 2 criteria? No. Patient's initial sepsis screen is negative. Does the patient have a suspected source of infection? No. Patient's initial sepsis screen is negative. Care prior to arrival: None. 00:45 Acuity: BASHIR 3 fc 00:58 Method Of Arrival: Ambulatory fc Historical: - Allergies: 01:05 No Known Allergies; fc - Home Meds: 01:05 Lasix 20 mg Oral tab 1 tab once daily [Active]; ibuprofen 800 mg Oral tab 1 tab 3 times fc per day [Active]; metoprolol tartrate 100 mg Oral tab 1 tab once daily [Active]; pravastatin 20 mg oral tab 1 tab nightly [Active]; pantoprazole 40 mg oral TbEC 1 tab once daily [Active]; losartan 50 mg oral tab 1 tab once daily [Active]; alprazolam 0.5 mg Oral tab 1 tab tid prn [Active]; - PMHx: 01:05 Anxiety; Gastric Reflux; Depression; Hypertension; Myocardial infarction; TIA; hiatal fc hernia; - PSHx: 01:05 EGD; Hernia repair; fc - Immunization history:: Last tetanus immunization: up to date. - Social history:: Smoking status: Patient/guardian denies using tobacco. - Ebola Screening: : Patient negative for fever greater than or equal to 101.5 degrees Fahrenheit, and additional compatible Ebola Virus Disease symptoms Patient denies exposure to infectious person Patient denies travel to an Ebola-affected area in the 21 days before illness onset. - Family history:: not pertinent. - Hospitalizations: : No recent hospitalization is reported. Screenin:03 Abuse screen: Denies threats or abuse. Nutritional screening: No deficits noted. jd3 Tuberculosis screening: No symptoms or risk factors identified. Fall Risk IV access (20 points). Ambulatory Aid- None/Bed Rest/Nurse Assist (0 pts). Gait- Normal/Bed Rest/Wheelchair (0 pts) Mental Status- Oriented to own ability (0 pts). Total Lyons Fall Scale indicates No Risk (0-24 pts). Assessment: 01:00 General: Appears uncomfortable, Behavior is cooperative, anxious. Pain: Complains of jd3 pain in right upper quadrant and left upper quadrant Pain does not radiate. Pain currently is 7 out of 10 on a pain scale. Quality of pain is described as burning, sharp, tender, Pain began 1 day ago. Is continuous, Also complains of nausea. Neuro: Level of Consciousness is awake, alert, obeys commands, Oriented to person, place, time, situation. Cardiovascular: Heart tones S1 S2 present Capillary refill < 3 seconds Patient's skin is warm and dry. Respiratory: Airway is patent Respiratory effort is even, unlabored, Respiratory pattern is regular, symmetrical, Breath sounds are clear bilaterally. GI: Abdomen is round Bowel sounds present X 4 quads. Abd is soft Abdomen is tender to palpation X 4 quads. Reports bloating. : No signs and/or symptoms were reported regarding the genitourinary system. EENT: No signs and/or symptoms were reported regarding the EENT system. Derm: Skin is intact, Skin is dry, Skin is normal, Skin temperature is warm. Musculoskeletal: Circulation, motion, and sensation intact. Range of motion: intact in all extremities. 02:05 Reassessment: Patient appears in no apparent distress at this time. Patient and/or jd3 family updated on plan of care and expected duration. Pain level reassessed. Patient is alert, oriented x 3, equal unlabored respirations, skin warm/dry/pink. 03:18 Reassessment: Patient appears in no apparent distress at this time. Patient and/or jd3 family updated on plan of care and expected duration. Pain level reassessed. Patient is alert, oriented x 3, equal unlabored respirations, skin warm/dry/pink. Patient states feeling better. 04:44 Reassessment: Patient appears in no apparent distress at this time. Patient and/or jd3 family updated on plan of care and expected duration. Pain level reassessed. Patient is alert, oriented x 3, equal unlabored respirations, skin warm/dry/pink. Patient states feeling better. 05:04 Reassessment: Patient appears in no apparent distress at this time. Patient and/or jd3 family updated on plan of care and expected duration. Pain level reassessed. Patient is alert, oriented x 3, equal unlabored respirations, skin warm/dry/pink. pt reported understanding of discharge instructions and fallow-up care, even and steady gait upon discharge. Patient states feeling better. Vital Signs: 00:45 Weight 95.71 kg (R); Height 5 ft. 8 in. (172.72 cm) (R); fc 00:57 BP 136 / 82; Pulse 74; Resp 19 S; Temp 98.0(O); Pulse Ox 99% on R/A; Pain 7/10; jd3 02:04 BP 116 / 72; Pulse 65; Resp 18 S; Pulse Ox 96% on R/A; jd3 03:16 BP 135 / 78; Pulse 69; Resp 16 S; Pulse Ox 98% on R/A; Pain 5/10; jd3 04:43 BP 126 / 82; Pulse 65; Resp 20 S; Pulse Ox 97% on R/A; Pain 5/10; jd3 00:45 Body Mass Index 32.08 (95.71 kg, 172.72 cm) fc ED Course: 00:37 Patient arrived in ED. ds1 00:45 Arm band placed on Patient placed in an exam room, on a stretcher. fc 00:55 Inserted saline lock: 20 gauge in right antecubital area, using aseptic technique. jd3 Blood collected. placed by Ayaka BASS. 00:56 River Harman MD is Attending Physician. rn 00:57 Byron Joseph RN is Primary Nurse. jd3 01:00 Triage completed. fc 01:03 Patient has correct armband on for positive identification. Placed in gown. Bed in low jd3 position. Call light in reach. Side rails up X2. Adult w/ patient. 04:08 CT Abd/Pelvis - W/Contrast In Process Unspecified. EDMS 04:23 CT completed. Patient tolerated procedure well. Patient moved to CT via stretcher. Patient moved back from NV. 05:05 No provider procedures requiring assistance completed. jd3 05:06 IV discontinued, intact, bleeding controlled, No redness/swelling at site. Pressure jd3 dressing applied. Administered Medications: 01:24 Drug: Pepcid 20 mg Route: IVP; Site: right antecubital; jd3 02:20 Follow up: Response: No adverse reaction jd3 01:24 Drug: GI Cocktail without - (Maalox Suspension 30 ml, Lidocaine Liquid 2 % 15 jd3 ml) Route: PO; 02:19 Follow up: Response: No adverse reaction; Marked relief of symptoms jd3 01:24 Drug: Zofran 4 mg Route: IVP; Site: right antecubital; jd3 02:18 Follow up: Response: No adverse reaction; Nausea is decreased jd3 Outcome: 04:47 Discharge ordered by . rn 05:06 Discharged to home ambulatory, with family. jd3 05:06 Condition: stable 05:06 Discharge instructions given to patient, family, Instructed on discharge instructions, follow up and referral plans. Demonstrated understanding of instructions, follow-up care. 05:06 Patient left the ED. jd3 Signatures: Dispatcher [employer] EDMS Kobe Mir Malinda De La Rosa RN Crystal Moore ds1 River Harman MD MD rn Davies, Jonathon, RN RN jd3 Corrections: (The following items were deleted from the chart) 01:01 01:01 Arm band placed on Patient placed in an exam room, on a stretcher, alisson
--- NOTE | 2018-04-13 04:48 | EDPHYS ---
Physician Documentation [facility] Name: Binu Vitale Age: 62 yrs Sex: Male : 1955 Arrival Date: 04/13/2018 Time: 00:37 Bed 6 Private MD: ED Physician River Harman HPI: 04/13 01:10 This 62 yrs old Male presents to ER via Ambulatory with complaints of rn Abdominal Pain - Upper. 01:10 The patient presents with abdominal pain in the epigastric area. Onset: The rn symptoms/episode began/occurred at an unknown time. The symptoms do not radiate. The symptoms are described as achy, burning. Severity of pain: At its worst the pain was moderate in the emergency department the pain is unchanged. The patient has experienced similar episodes in the past. The patient has been recently seen by a physician:. Historical: - Allergies: 01:05 No Known Allergies; fc - Home Meds: 01:05 Lasix 20 mg Oral tab 1 tab once daily [Active]; ibuprofen 800 mg Oral tab 1 tab 3 times fc per day [Active]; metoprolol tartrate 100 mg Oral tab 1 tab once daily [Active]; pravastatin 20 mg oral tab 1 tab nightly [Active]; pantoprazole 40 mg oral TbEC 1 tab once daily [Active]; losartan 50 mg oral tab 1 tab once daily [Active]; alprazolam 0.5 mg Oral tab 1 tab tid prn [Active]; - PMHx: 01:05 Anxiety; Gastric Reflux; Depression; Hypertension; Myocardial infarction; TIA; hiatal fc hernia; - PSHx: 01:05 EGD; Hernia repair; fc - Immunization history:: Last tetanus immunization: up to date. - Social history:: Smoking status: Patient/guardian denies using tobacco. - Ebola Screening: : Patient negative for fever greater than or equal to 101.5 degrees Fahrenheit, and additional compatible Ebola Virus Disease symptoms Patient denies exposure to infectious person Patient denies travel to an Ebola-affected area in the 21 days before illness onset. - Family history:: not pertinent. - Hospitalizations: : No recent hospitalization is reported. ROS: 01:10 Constitutional: Negative for fever, chills, and weight loss, Eyes: Negative for injury, rn pain, redness, and discharge, Neck: Negative for injury, pain, and swelling, Cardiovascular: Negative for chest pain, palpitations, and edema, Respiratory: Negative for cough, wheezing, and pleuritic chest pain, Abdomen/GI: Negative for diarrhea, + abd pain/nausea/bloating MS/Extremity: Negative for injury and deformity, Skin: Negative for injury, rash, and discoloration, Neuro: Negative for headache, weakness, numbness, tingling, and seizure. Exam: 01:10 Constitutional: This is a well developed, well nourished patient who is awake, alert, rn and in no acute distress. Head/Face: Normocephalic, atraumatic. Eyes: Pupils equal round and reactive to light, extra-ocular motions intact. Lids and lashes normal. Conjunctiva and sclera are non-icteric and not injected. Cornea within normal limits. Periorbital areas with no swelling, redness, or edema. Cardiovascular: Regular rate and rhythm with a normal S1 and S2. No gallops, murmurs, or rubs. Normal PMI, no JVD. No pulse deficits. Respiratory: Lungs have equal breath sounds bilaterally, clear to auscultation and percussion. No rales, rhonchi or wheezes noted. No increased work of breathing, no retractions or nasal flaring. Abdomen/GI: soft, mild epigastric tenderness, no rebound, neg jackson Skin: Warm, dry with normal turgor. Normal color with no rashes, no lesions, and no evidence of cellulitis. Neuro: Awake and alert, GCS 15, oriented to person, place, time, and situation. Cranial nerves II-XII grossly intact. Motor strength 5/5 in all extremities. Sensory grossly intact. Vital Signs: 00:45 Weight 95.71 kg (R); Height 5 ft. 8 in. (172.72 cm) (R); fc 00:57 BP 136 / 82; Pulse 74; Resp 19 S; Temp 98.0(O); Pulse Ox 99% on R/A; Pain 7/10; jd3 02:04 BP 116 / 72; Pulse 65; Resp 18 S; Pulse Ox 96% on R/A; jd3 03:16 BP 135 / 78; Pulse 69; Resp 16 S; Pulse Ox 98% on R/A; Pain 5/10; jd3 04:43 BP 126 / 82; Pulse 65; Resp 20 S; Pulse Ox 97% on R/A; Pain 5/10; jd3 00:45 Body Mass Index 32.08 (95.71 kg, 172.72 cm) fc MDM: 00:56 Patient medically screened. rn 04:44 Differential diagnosis: gastritis, hiatal hernia. Data reviewed: vital signs, nurses rn notes. 04:45 Counseling: I had a detailed discussion with the patient and/or guardian regarding: the rn historical points, exam findings, and any diagnostic results supporting the discharge/admit diagnosis, lab results, radiology results, the need for outpatient follow up, to return to the emergency department if symptoms worsen or persist or if there are any questions or concerns that arise at home. Response to treatment: the patient's symptoms have mildly improved after treatment, and as a result, I will discharge patient. Special discussion: Based on the patient's Hx, exam, and Dx evaluation, there is no indication for emergent surgery or inpatient Tx. It is understood by the patient/guardian that if the Sx's persist or worsen they need to return immediately for re-evaluation. I discussed with the patient/guardian in detail that at this point there is no indication for admission to the hospital. It is understood, however, that if the symptoms persist or worsen the patient needs to return immediately for re-evaluation. 04/13 01:02 Order name: Urine Dipstick--Ancillary (enter results) rg2 04/13 01:09 Order name: Basic Metabolic Panel; Complete Time: rn 04/13 01:09 Order name: CBC with Diff; Complete Time: rn 04/13 01:09 Order name: Hepatic Function; Complete Time: rn 04/13 01:09 Order name: Lipase; Complete Time: 04/13 01:09 Order name: BNP; Complete Time: 04:44 rn 04/13 01:09 Order name: IV Saline Lock; Complete Time: : rn 04/13 01:09 Order name: Labs collected and sent; Complete Time: : rn 04/13 01:09 Order name: CT Abd/Pelvis - W/Contrast rn 04/13 01:09 Order name: EKG; Complete Time: : rn 04/13 01:09 Order name: Troponin (emerg Dept Use Only); Complete Time: rn 04/13 01:09 Order name: EKG - Nurse/Tech; Complete Time: 01:18 rn Administered Medications: 01:24 Drug: Pepcid 20 mg Route: IVP; Site: right antecubital; jd3 02:20 Follow up: Response: No adverse reaction jd3 01:24 Drug: GI Cocktail without - (Maalox Suspension 30 ml, Lidocaine Liquid 2 % 15 jd3 ml) Route: PO; 02:19 Follow up: Response: No adverse reaction; Marked relief of symptoms jd3 01:24 Drug: Zofran 4 mg Route: IVP; Site: right antecubital; jd3 02:18 Follow up: Response: No adverse reaction; Nausea is decreased jd3 Disposition: 04/13/18 04:47 Discharged to Home. Impression: Hiatal Hernia. - Condition is Stable. - Discharge Instructions: Hiatal Hernia. - Medication Reconciliation Form, Thank You Letter, Antibiotic Education, Prescription Opioid Use form. - Follow up: Private Physician; When: As needed; Reason: Recheck today's complaints, Re-evaluation by your physician. - Problem is new. - Symptoms have improved. Signatures: Dispatcher [employer] EDMS Malinda De La Rosa RN RN River Harman MD MD rn Davies, Jonathon, RN RN jd3 Corrections: (The following items were deleted from the chart) 05:06 04:47 04/13/2018 04:47 Discharged to Home. Impression: Hiatal Hernia. Condition is jd3 Stable. Forms are Medication Reconciliation Form, Thank You Letter, Antibiotic Education, Prescription Opioid Use. Follow up: Private Physician; When: As needed; Reason: Recheck today's complaints, Re-evaluation by your physician. Problem is new. Symptoms have improved. rn
[2018-04-13 05:49] LABS: Urine Blood NEGATIVE (NEG); Urine Glucose NEGATIVE (NEG); Urine Protein NEGATIVE (NEG); Urine Specific Gravity <1.005 (1.005-1.030); Urine pH 5.5 (5.0-7.0)
--- NOTE | 2018-04-13 09:09 | EKG ---
Test Date: 2018-04-13 Test Time: 01:20:52 Pres[employer] Principal: LISA MEASUREMENT RESULTS: Intervals: Rate: 70 MA: 188 QRSD: 88 QT: 422 QTc: 455 [place]: P: 4 MA: 188 QRS: 5 T: 18 INTERPRETIVE STATEMENTS: Normal sinus rhythm Normal ECG Compared to ECG 03/05/2018 22:53:47 No significant changes Electronically Signed On 04-13-18 09:08:25 CDT by Ashish Osei
--- NOTE | 2018-04-13 11:23 | RAD REPORT ---
EXAM DESCRIPTION: CT - Abdomen Pelvis W Contrast - 04/13/2018 7:09 am CLINICAL HISTORY: Abdominal pain. Epigastric pain with vomiting since yesterday COMPARISON: March 2018 TECHNIQUE: Computed axial tomography of the abdomen and pelvis was obtained. 100 cc Isovue-300 is ad ministered intravenously. Oral contrast was given.A preliminary report was generated by [employer] and reviewed prior to this dictation All CT scans are performed using dose optimization technique as appropriate and may include automated exposure control or mA/KV adjustment according to patient size. FINDINGS: The liver, spleen, pancreas, adrenals and kidneys appear unremarkable. A small right renal cyst is se en. The appendix is normal caliber. Diverticula stem from the colon without evidence of diverticulitis. A small to moderate hiatal hernia is seen. A moderate right inguinal hernia is present. A small left inguinal hernia is seen. IMPRESSION: No acute abnormality is displayed
== END 2018-04-13 05:06 | disposition home or self-care (01) ==
LOC: ER 00:36
DX: K44.9 Diaphragmatic hernia without obstruction or gangrene (principal); I10 Essential (primary) hypertension; F32.9 Major depressive disorder, single episode, unspecified; F41.9 Anxiety disorder, unspecified; Z86.73 Personal history of transient ischemic attack (TIA), and cerebral infarction without residual deficits
CPT/HCPCS: 36415; 74177; 80048; 80076; 81003; 83690; 83880; 84484; 85025; 93005; 96374; 96375; 99284; J2405; Q9967

== ENCOUNTER 2018-04-30 14:00 | Emergency (ER) | payer SELFPAY ==
[2018-04-30 14:36] LABS: Absolute Lymphocytes (CBC) 1.8 K/uL (0.7-4.9); Absolute Monocytes 0.7 K/uL (0.1-1.3); Absolute Neutrophil 3.5 K/uL (1.8-8.0); Basophils % 0.5 % (0-1.3); Eosinophils % 1.6 % (0-4.4); Hematocrit 33.1 % (39.6-49.0); Lymphocytes % 29.1 % (15.3-44.8); MCH 22.5 pg (27.0-35.0); MCV 71.5 fL (80-100); MPV 8.1 fL (7.6-11.3); Monocytes % 11.6 % (3.3-12.3); RBC Red Blood Cell Count 4.63 M/uL (4.33-5.43)
[2018-04-30 14:50] LABS: Protime INR 0.97
[2018-04-30 14:54] LABS: ALT/SGPT 27 U/L (12-78); AST/SGOT 21 U/L (15-37); Albumin 3.8 g/dL (3.4-5.0); Alkaline Phosphatase 117 U/L (45-117); BUN Blood Urea Nitrogen 12 mg/dL (7-18); Bicarbonate 27 mmol/L (21-32); Bilirubin Direct < 0.1 mg/dL (0-0.2); Bilirubin Total 0.3 mg/dL (0.2-1.0); Creatine Phosphokinase 100 U/L (39-308); Glucose Level 118 mg/dL (74-106); Lipase 210 U/L (73-393); Magnesium 2.2 mg/dL (1.8-2.4); NT PRO-BNP 30 pg/mL (<125); Potassium 3.9 mmol/L (3.5-5.1); Protein, Total 7.4 g/dL (6.4-8.2); Sodium Level 138 mmol/L (136-145)
--- NOTE | 2018-04-30 15:01 | RAD REPORT ---
EXAM DESCRIPTION: RAD - Chest Single View - 04/30/2018 2:42 pm CLINICAL HISTORY: Back pain, right upper quadrant pain, abdominal distention COMPARISON: March 05, 2018 TECHNIQUE: AP portable chest image was obtained 1436 hours . FINDINGS: Left lung field is clear. Patient has significant right hemidiaphragm elevation matching p rior imaging. There is also a moderately large hiatal hernia. The aerated portion of the right lung f ield is clear of an acute process. No failure or volume overload. Trachea is midline. Heart and vascu lature are normal. No measurable pleural effusion and no pneumothorax. No gross bony abnormality seen . No acute aortic findings suspected. IMPRESSION: No acute cardiopulmonary process. The above detailed chest findings are stable from March 05.
--- NOTE | 2018-04-30 16:03 | RAD REPORT ---
EXAM DESCRIPTION: CT - Angio Aorta For Dissection - 04/30/2018 3:22 pm CLINICAL HISTORY: Chest pain, abdominal pain, abdominal distention COMPARISON: Chest film April 30, CT dissection March 06 TECHNIQUE: Dynamically enhanced 3 mm thick images of the chest, abdomen, and upper pelvis were obtai bear during administration of approximately 150mL Isovue 370 IV contrast. Sagittal and coronal MIP ref ormatted images were generated and reviewed. Exam utilizes a protocol to evaluate entire course of th e aorta. All CT scans are performed using dose optimization technique as appropriate and may include automated exposure control or mA/KV adjustment according to patient size. FINDINGS: Aorta is normal in diameter with no dissection or other acute aortic findings. Reconstruct ion images show no significant findings. Scattered calcifications in the abdominal aorta are noted. N o displaced calcifications. Pulmonary arteries are normal as well. No cardiomegaly, pericardial thickening or pericardial effusio n. No mass or infiltrate in the lung parenchyma. No pleural thickening, pleural effusion or pneumothorax . Significant right hemidiaphragm elevation is again noted. There is some minimal chronic atelectasis in the posterior right lung field. A small to moderate hiatal hernia is present with approximately 2 0% of the stomach intrathoracic. No acute component. No abnormal mediastinal or hilar mass or lymphadenopathy seen. No chest wall mass or abnormal axillar y lymphadenopathy. Celiac, SMA and renal arteries show no suspicious findings. Solid abdominal viscera and bowel show no significant findings. No mass or abnormal lymphadenopathy. No free air, free fluid or inflammatory stranding. Small incidental renal cysts noted. No urinary bladder abnormality. Prostate gland and se destiny vesicles normal. Moderate sigmoid diverticulosis without diverticulitis. Moderate-sized fat georgi led right inguinal hernia. There appears to be prior inguinal hernia repair. L5-S1 disc and endplate degenerative change. No acute or destructive bone finding. IMPRESSION: Negative CT scan of the aorta for acute or suspicious findings. Additional nonacute findings are detailed in the body of the report. No new or suspicious finding fro March 2018.
--- NOTE | 2018-04-30 16:53 | EKG ---
Test Date: 2018-04-30 Test Time: 14:31:18 Food Quality Tester: HALLIE MEASUREMENT RESULTS: Intervals: Rate: 73 CT: 164 QRSD: 90 QT: 402 QTc: 442 Harrington: P: -9 CT: 164 QRS: 5 T: 12 INTERPRETIVE STATEMENTS: Normal sinus rhythm Inferior infarct, age undetermined Abnormal ECG Compared to ECG 04/13/2018 01:20:52 Myocardial infarct finding now present Electronically Signed On 04-30-18 16:52:43 CDT by Brandon Damon
[2018-04-30 17:00] LABS: Urine Blood NEGATIVE (NEG); Urine Glucose NEGATIVE (NEG); Urine Protein NEGATIVE (NEG)
[2018-04-30] MEDS ORDERED: FENTANYL CITR 100 MCG/2 ML ONE ×2 (17:10→19:28)
[2018-04-30] MEDS ORDERED: ONDANSETRON 4 MG/2 ML VIAL ONE (17:10)
--- NOTE | 2018-04-30 17:11 | ER ---
Nurse's Notes [facility] Name: Binu Vitale Age: 62 yrs Sex: Male : 1955 Arrival Date: 04/30/2018 Time: 14:02 Bed 13 Private MD: None, None Diagnosis: Abdominal tenderness;Congenital hiatus hernia;Vomiting Presentation: 04/30 14:06 Presenting complaint: Patient states: Reports RUQ abdominal pain that radiates to back aj with vomiting since yesterday. Patient reports he has been evaluated for this and DX with Hiatal Hernia and is going to have surgery. Transition of care: patient was not received from another setting of care. Onset of symptoms was April 29, 2018. Risk Assessment: Do you want to hurt yourself or someone else? Patient reports no desire to harm self or others. Initial Sepsis Screen: Does the patient meet any 2 criteria? No. Patient's initial sepsis screen is negative. Does the patient have a suspected source of infection? No. Patient's initial sepsis screen is negative. Care prior to arrival: None. 14:06 Method Of Arrival: Ambulatory aj 14:06 Acuity: BASHIR 3 aj Triage Assessment: 14:08 General: Appears in no apparent distress. uncomfortable, Behavior is calm, cooperative, aj appropriate for age. Pain: Complains of pain in epigastric area, anterior aspect of right lateral abdomen, posterior aspect of right lateral abdomen and right upper quadrant. Neuro: Level of Consciousness is awake, alert, obeys commands, Oriented to person, place, time, situation, Appropriate for age. Respiratory: Airway is patent Respiratory effort is even, unlabored, Respiratory pattern is regular, symmetrical. GI: Reports upper abdominal pain, nausea, vomiting. Derm: Skin is intact, is healthy with good turgor, Skin is pink, warm \T\ dry. normal. Historical: - Allergies: 14:08 No Known Allergies; aj - Home Meds: 14:08 alprazolam 0.5 mg Oral tab 1 tab TID prn [Active]; ibuprofen 800 mg Oral tab 1 tab 3 aj times per day [Active]; Lasix 20 mg Oral tab 1 tab once daily [Active]; losartan 50 mg Oral tab 1 tab once daily [Active]; metoprolol tartrate 100 mg Oral tab 1 tab once daily [Active]; pantoprazole 40 mg Oral TbEC 1 tab once daily [Active]; pravastatin 20 mg Oral tab 1 tab nightly [Active]; - PMHx: 14:08 Anxiety; Depression; Gastric Reflux; hiatal hernia; Hypertension; Myocardial aj infarction; TIA; - PSHx: 14:08 EGD; Hernia repair; aj - Immunization history:: Adult Immunizations up to date. - Social history:: Smoking status: Patient/guardian denies using tobacco. - Ebola Screening: : Patient negative for fever greater than or equal to 101.5 degrees Fahrenheit, and additional compatible Ebola Virus Disease symptoms Patient denies exposure to infectious person Patient denies travel to an Ebola-affected area in the 21 days before illness onset No symptoms or risks identified at this time. - Family history:: not pertinent. Screenin:13 Abuse screen: Denies threats or abuse. Denies injuries from another. Nutritional hj screening: No deficits noted. Tuberculosis screening: No symptoms or risk factors identified. Fall Risk None identified. Assessment: 14:14 GI: Bowel sounds present X 4 quads. Abdomen is tender to palpation. hj 14:14 General: Appears in no apparent distress. uncomfortable, Behavior is calm, cooperative, hj appropriate for age. Pain: Complains of pain in right upper quadrant and posterior aspect of right lateral abdomen and anterior aspect of right lateral abdomen and epigastric area. Neuro: Level of Consciousness is awake, alert, obeys commands, Oriented to person, place, time, situation, Appropriate for age. Cardiovascular: Capillary refill < 3 seconds Patient's skin is warm and dry. Respiratory: Airway is patent Respiratory effort is even, unlabored, Respiratory pattern is regular, symmetrical. : No signs and/or symptoms were reported regarding the genitourinary system. EENT: Derm: No signs and/or symptoms reported regarding the dermatologic system. Musculoskeletal: No signs and/or symptoms reported regarding the musculoskeletal system. 15:15 Reassessment: wheeled to CT;. hj 15:30 Reassessment: back from CT;. hj 16:30 Reassessment: Patient and/or family updated on plan of care and expected duration. Pain hj level reassessed. Patient is alert, oriented x 3, equal unlabored respirations, skin warm/dry/pink. 17:22 Reassessment: Patient and/or family updated on plan of care and expected duration. Pain hj level reassessed. Patient is alert, oriented x 3, equal unlabored respirations, skin warm/dry/pink. for possible transfer;. 18:40 Reassessment: Patient and/or family updated on plan of care and expected duration. Pain hj level reassessed. Patient is alert, oriented x 3, equal unlabored respirations, skin warm/dry/pink. awaiting ambulance; called reports to [facility]; spoke with Kirstie Lozano RN; pt to room 2114;. 19:15 General: Appears in no apparent distress. Behavior is calm, cooperative, appropriate ea for age. Pain: Complains of pain in right upper quadrant Pain radiates to right mid back Pain currently is 4 out of 10 on a pain scale. Quality of pain is described as stabbing, Is intermittent. Neuro: Level of Consciousness is awake, alert, obeys commands, Oriented to person, place, time, situation, Appropriate for age. Cardiovascular: Patient's skin is warm and dry. Respiratory: Airway is patent Respiratory effort is even, unlabored, Respiratory pattern is regular, symmetrical. GI: Bowel sounds present X 4 quads. : No signs and/or symptoms were reported regarding the genitourinary system. EENT: Derm: No signs and/or symptoms reported regarding the dermatologic system. Skin is pink, warm \T\ dry. Musculoskeletal: Circulation, motion, and sensation intact. 20:42 Reassessment: Patient and/or family updated on plan of care and expected duration. Pain ea level reassessed. Patient is alert, oriented x 3, equal unlabored respirations, skin warm/dry/pink. Pt reports pain has decreased. 21:11 Reassessment: Patient and/or family updated on plan of care and expected duration. Pain ea level reassessed. Patient is alert, oriented x 3, equal unlabored respirations, skin warm/dry/pink. Pt reports pain has decreased. Awaiting on EMS. Family remains at bedside. 21:49 Reassessment: Patient and/or family updated on plan of care and expected duration. Pain ea level reassessed. Patient is alert, oriented x 3, equal unlabored respirations, skin warm/dry/pink. [facility] at facility for transfer. Vital Signs: 14:08 BP 153 / 91; Pulse 78; Resp 16; Temp 97.6; Pulse Ox 97% on R/A; Weight 94.35 kg; Height aj 5 ft. 8 in. (172.72 cm); 15:12 BP 140 / 83; Pulse 70; Resp 18; Pulse Ox 100% on R/A; hj 16:22 BP 135 / 69; Pulse 72; Resp 18; Pulse Ox 100% on R/A; hj 17:23 BP 135 / 82; Pulse 65; Resp 18; Pulse Ox 100% on R/A; hj 18:41 BP 158 / 72; Pulse 69; Resp 18; Pulse Ox 100% on R/A; hj 19:13 BP 165 / 86; Pulse 60; Resp 18; Pulse Ox 99% on R/A; Pain 8/10; ea 20:55 BP 154 / 91; Pulse 60; Resp 18; Pulse Ox 98% ; Pain 3/10; ea 21:11 BP 145 / 86; Pulse 60; Resp 18 S; Temp 97.8(O); Pulse Ox 98% ; Pain 3/10; ea 21:54 BP 143 / 86; Pulse 58; Resp 18; Pulse Ox 99% ; Pain 3/10; ea 14:08 Body Mass Index 31.63 (94.35 kg, 172.72 cm) ED Course: 14:02 Patient arrived in ED. mr 14:03 None, None is Private Physician. mr 14:08 Triage completed. aj 14:08 Arm band placed on left wrist. Patient placed in an exam room. aj 14:10 Jann Oconnell, RN is Primary Nurse. hj 14:14 Patient has correct armband on for positive identification. Placed in gown. Bed in low hj position. Call light in reach. Side rails up X 1. 14:15 Jose Rafael Gallagher MD is Attending Physician. chloe 14:23 Initial lab(s) drawn, by ar, held in ED. Inserted saline lock: 20 gauge in left mh5 antecubital area, using aseptic technique. Blood collected. 14:38 XRAY Chest (1 view) In Process Unspecified. EDMS 14:44 EKG done, by computer technology trainer. reviewed by Jose Rafael Gallagher MD. at1 15:[address] via stretcher. vm2 15:22 CT completed. Patient tolerated procedure well. Patient moved back from CT. vm2 15:23 CT Aorta for Dissection In Process Unspecified. EDMS 21:55 No provider procedures requiring assistance completed. Patient transferred, IV remains ea in place. Administered Medications: 14:22 Drug: NS 0.9% 1000 ml Route: IV; Rate: 125 ml/hr; Site: left antecubital; hj 14:22 Drug: Pepcid 20 mg Route: IVP; Site: left antecubital; hj 15:00 Follow up: Response: No adverse reaction hj 17:05 Drug: fentaNYL (PF) 25 mcg Route: IVP; Site: left antecubital; hj 17:11 Follow up: Response: No adverse reaction; Pain is decreased hj 17:05 Drug: Zofran 4 mg Route: IVP; Site: left antecubital; hj 17:12 Follow up: Response: No adverse reaction hj 19:42 Drug: fentaNYL (PF) 25 mcg Route: IVP; Site: left antecubital; ea 20:30 Follow up: Response: No adverse reaction; Pain is decreased ea Outcome: 17:10 ER care complete, transfer ordered by . chloe 19:30 Instructed on the need for transfer. ea 21:55 Transferred by ground EMS to [facility], Transfer form completed. ea X-rays sent w/ patient. 21:55 Condition: stable 21:56 Patient left the ED. ea Addendum: 05/03/2018 10:11 Addendum: Culture Results: Positive urine culture. culture report faxed to [facility] ATTN: KALI Miranda. Signatures: Dispatcher [employer] EDMS Sonia Naik, RN Jose Rafael Sarmiento MD MD cha Rivera, Maria mr Shannan Echeverria, RN Sonia Triplett, workday consultant EKG [facility] Jann Oconnell RN RN hj Martinez, Maria [facility] Darlin Schwab [facility] Sruthi Melendez RN RN ea
--- NOTE | 2018-04-30 17:11 | EDPHYS ---
Physician Documentation [facility] Name: Binu Vitale Age: 62 yrs Sex: Male : 1955 Arrival Date: 04/30/2018 Time: 14:02 Bed 13 Private MD: None, None ED Physician Jose Rafael Gallagher HPI: 04/30 17:05 This 62 yrs old Male presents to ER via Ambulatory with complaints of chloe Abdominal Pain, Back Pain. 17:05 The patient presents with pain that is acute, with no known mechanism of injury. The chloe symptoms are located in the. 17:05 The patient presents with abdominal pain in the epigastric area, in the upper abdomen, chloe abdominal distention in the epigastric area, in the upper abdomen. Onset: The symptoms/episode began/occurred 2 day(s) ago. Onset: The symptoms/episode began/occurred 2 day(s) ago. The pain does not radiate. Associated signs and symptoms: The patient has no apparent associated signs or symptoms. Severity of symptoms: At their worst the symptoms were mild. Historical: - Allergies: 14:08 No Known Allergies; aj - Home Meds: 14:08 alprazolam 0.5 mg Oral tab 1 tab TID prn [Active]; ibuprofen 800 mg Oral tab 1 tab 3 aj times per day [Active]; Lasix 20 mg Oral tab 1 tab once daily [Active]; losartan 50 mg Oral tab 1 tab once daily [Active]; metoprolol tartrate 100 mg Oral tab 1 tab once daily [Active]; pantoprazole 40 mg Oral TbEC 1 tab once daily [Active]; pravastatin 20 mg Oral tab 1 tab nightly [Active]; - PMHx: 14:08 Anxiety; Depression; Gastric Reflux; hiatal hernia; Hypertension; Myocardial aj infarction; TIA; - PSHx: 14:08 EGD; Hernia repair; aj - Immunization history:: Adult Immunizations up to date. - Social history:: Smoking status: Patient/guardian denies using tobacco. - Ebola Screening: : Patient negative for fever greater than or equal to 101.5 degrees Fahrenheit, and additional compatible Ebola Virus Disease symptoms Patient denies exposure to infectious person Patient denies travel to an Ebola-affected area in the 21 days before illness onset No symptoms or risks identified at this time. - Family history:: not pertinent. ROS: 17:05 Constitutional: Negative for fever, chills, and weight loss, Eyes: Negative for injury, chloe pain, redness, and discharge, ENT: Negative for injury, pain, and discharge, Neck: Negative for injury, pain, and swelling, Cardiovascular: Negative for chest pain, palpitations, and edema, Respiratory: Negative for shortness of breath, cough, wheezing, and pleuritic chest pain, Back: Negative for injury and pain, : Negative for injury, bleeding, discharge, and swelling, MS/Extremity: Negative for injury and deformity, Skin: Negative for injury, rash, and discoloration, Neuro: Negative for headache, weakness, numbness, tingling, and seizure, Psych: Negative for depression, anxiety, suicide ideation, homicidal ideation, and hallucinations, Allergy/Immunology: Negative for hives, rash, and allergies, Endocrine: Negative for neck swelling, polydipsia, polyuria, polyphagia, and marked weight changes, Hematologic/Lymphatic: Negative for swollen nodes, abnormal bleeding, and unusual bruising. 17:05 Abdomen/GI: Positive for abdominal pain, nausea and vomiting, of the epigastric area, right upper quadrant and left upper quadrant. Exam: 17:05 Constitutional: This is a well developed, well nourished patient who is awake, alert, chloe and in no acute distress. Head/Face: Normocephalic, atraumatic. Eyes: Pupils equal round and reactive to light, extra-ocular motions intact. Lids and lashes normal. Conjunctiva and sclera are non-icteric and not injected. Cornea within normal limits. Periorbital areas with no swelling, redness, or edema. ENT: Nares patent. No nasal discharge, no septal abnormalities noted. Tympanic membranes are normal and external auditory canals are clear. Oropharynx with no redness, swelling, or masses, exudates, or evidence of obstruction, uvula midline. Mucous membranes moist. Neck: Trachea midline, no thyromegaly or masses palpated, and no cervical lymphadenopathy. Supple, full range of motion without nuchal rigidity, or vertebral point tenderness. No Meningismus. Chest/axilla: Normal chest wall appearance and motion. Nontender with no deformity. No lesions are appreciated. Cardiovascular: Regular rate and rhythm with a normal S1 and S2. No gallops, murmurs, or rubs. Normal PMI, no JVD. No pulse deficits. Respiratory: Lungs have equal breath sounds bilaterally, clear to auscultation and percussion. No rales, rhonchi or wheezes noted. No increased work of breathing, no retractions or nasal flaring. Back: No spinal tenderness. No costovertebral tenderness. Full range of motion. Male : Normal genitalia with no discharge or lesions. Skin: Warm, dry with normal turgor. Normal color with no rashes, no lesions, and no evidence of cellulitis. MS/ Extremity: Pulses equal, no cyanosis. Neurovascular intact. Full, normal range of motion. Neuro: Awake and alert, GCS 15, oriented to person, place, time, and situation. Cranial nerves II-XII grossly intact. Motor strength 5/5 in all extremities. Sensory grossly intact. Cerebellar exam normal. Normal gait. Psych: Awake, alert, with orientation to person, place and time. Behavior, mood, and affect are within normal limits. 17:05 Abdomen/GI: Inspection: abdomen appears normal, Bowel sounds: active, Palpation: mild abdominal tenderness, moderate abdominal tenderness, in the epigastric area, right upper quadrant and left upper quadrant. Vital Signs: 14:08 BP 153 / 91; Pulse 78; Resp 16; Temp 97.6; Pulse Ox 97% on R/A; Weight 94.35 kg; Height aj 5 ft. 8 in. (172.72 cm); 15:12 BP 140 / 83; Pulse 70; Resp 18; Pulse Ox 100% on R/A; hj 16:22 BP 135 / 69; Pulse 72; Resp 18; Pulse Ox 100% on R/A; hj 17:23 BP 135 / 82; Pulse 65; Resp 18; Pulse Ox 100% on R/A; hj 18:41 BP 158 / 72; Pulse 69; Resp 18; Pulse Ox 100% on R/A; hj 19:13 BP 165 / 86; Pulse 60; Resp 18; Pulse Ox 99% on R/A; Pain 8/10; ea 20:55 BP 154 / 91; Pulse 60; Resp 18; Pulse Ox 98% ; Pain 3/10; ea 21:11 BP 145 / 86; Pulse 60; Resp 18 S; Temp 97.8(O); Pulse Ox 98% ; Pain 3/10; ea 21:54 BP 143 / 86; Pulse 58; Resp 18; Pulse Ox 99% ; Pain 3/10; ea 14:08 Body Mass Index 31.63 (94.35 kg, 172.72 cm) aj MDM: 14:15 Patient medically screened. [facility] 17:05 Data reviewed: vital signs, nurses notes, lab test result(s), EKG, radiologic studies, [facility] CT scan, plain films. 04/30 14:22 Order name: Basic Metabolic Panel; Complete Time: 15:17 [facility] 04/30 14:22 Order name: CBC with Diff; Complete Time: 15:17 [facility] 04/30 14:22 Order name: Ckmb; Complete Time: 15:17 [facility] 04/30 14:22 Order name: CPK; Complete Time: 15:17 [facility] 04/30 14:22 Order name: LFT's; Complete Time: 15:17 [facility] 04/30 14:22 Order name: Magnesium; Complete Time: 15:17 [facility] 04/30 14:22 Order name: NT PRO-BNP; Complete Time: 15:17 [facility] 04/30 14:22 Order name: PT-INR; Complete Time: 15:17 [facility] 04/30 14:22 Order name: Ptt, Activated; Complete Time: 15:17 [facility] 04/30 14:22 Order name: Troponin (emerg Dept Use Only); Complete Time: 15:17 [facility] 04/30 14:22 Order name: XRAY Chest (1 view); Complete Time: 15:17 [facility] 04/30 14:22 Order name: Lipase; Complete Time: 15:17 [facility] 04/30 14:22 Order name: Urine Culture [facility] 04/30 16:41 Order name: Urine Dipstick--Ancillary (enter results); Complete Time: 17:35 aa5 04/30 14:22 Order name: EKG; Complete Time: 14:23 [facility] 04/30 14:22 Order name: Cardiac monitoring; Complete Time: 14:29 [facility] 04/30 14:22 Order name: EKG - Nurse/Tech; Complete Time: 15:13 [facility] 04/30 14:22 Order name: IV Saline Lock; Complete Time: 14:29 [facility] 04/30 14:22 Order name: Labs collected and sent; Complete Time: 14:29 [facility] 04/30 14:22 Order name: O2 Per Protocol; Complete Time: 14:29 [facility] 04/30 14:22 Order name: O2 Sat Monitoring; Complete Time: 14:29 [facility] 04/30 14:22 Order name: Urine Dipstick-Ancillary (obtain specimen); Complete Time: 16:11 [facility] 04/30 14:22 Order name: CT Aorta for Dissection; Complete Time: 16:52 [facility] Administered Medications: 14:22 Drug: NS 0.9% 1000 ml Route: IV; Rate: 125 ml/hr; Site: left antecubital; hj 14:22 Drug: Pepcid 20 mg Route: IVP; Site: left antecubital; hj 15:00 Follow up: Response: No adverse reaction hj 17:05 Drug: fentaNYL (PF) 25 mcg Route: IVP; Site: left antecubital; hj 17:11 Follow up: Response: No adverse reaction; Pain is decreased hj 17:05 Drug: Zofran 4 mg Route: IVP; Site: left antecubital; hj 17:12 Follow up: Response: No adverse reaction hj 19:42 Drug: fentaNYL (PF) 25 mcg Route: IVP; Site: left antecubital; ea 20:30 Follow up: Response: No adverse reaction; Pain is decreased ea Disposition: 04/30/18 17:10 Transfer ordered to [facility]. Diagnosis are Abdominal tenderness, Congenital hiatus hernia, Vomiting. - Reason for transfer: Higher level of care. - Accepting physician is TO [facility], MEDICINE, THORACIC CONSULT. - Condition is Fair. - Problem is new. - Symptoms have improved. Signatures: Dispatcher [employer] EDSonia Wylie RN RN aj Anderson, Corey, MD MD cha Joaquin, Henry, RN RN hj Antunez, Elena, RN RN ea Corrections: (The following items were deleted from the chart) 21:56 17:10 04/30/2018 17:10 Transfer ordered to [facility]. Diagnosis is ea Abdominal tenderness; Congenital hiatus hernia; Vomiting. Reason for transfer: Higher level of care. Accepting physician is TO [facility], MEDICINE, THORACIC CONSULT. Condition is Fair. Problem is new. Symptoms have improved. chloe
== END 2018-04-30 21:56 | disposition short-term general hospital (02) ==
LOC: ER 14:00
DX: Q40.1 Congenital hiatus hernia (principal); R11.10 Vomiting, unspecified; I10 Essential (primary) hypertension; F41.9 Anxiety disorder, unspecified; F32.9 Major depressive disorder, single episode, unspecified; I25.2 Old myocardial infarction
CPT/HCPCS: 36415; 71045; 71275; 74175; 80048; 80076; 81003; 82550; 82553; 83690; 83735; 83880; 84484; 85025; 85610; 85730; 87077; 87086; 87088; 87186; 93005; 96374; 96375; 99285; J2405; J3010; Q9967

== ENCOUNTER 2018-12-04 15:01 | Observation (INO) | payer OTHER ==
--- OUTSIDE RECORDS SUMMARY | 2018-12-04 15:04 | XMS REPORT ---
:1955 [facility] Address [address] [place] [address] [address] [place] [address] Care Team Providers Name Role Phone NICOLE MURDOCK Unavailable Unavailable Problems This patient has no known problems. Allergies, Adverse Reactions, Alerts This patient has no known allergies or adverse reactions. Medications This patient has no known medications. Results Test Description Test Time Test Comments Text Results Atomic Results Result Comments TISSUE EXAM 2018-05-06 10:22:00 Surgical Pathology Report Case: [id number] Authorizing Provider: Nicole Murdock MD Collected: 05/02/2018 1641 Ordering Location: [address] Received: 05/05/2018 0758 Service Pathologist: Nadeem Spivey MD Specimen: Stomach, Antrum, for hpylori A. STOMACH, ANTRUM BIOPSIES: - TRANSITIONAL/BODY MUCOSA WITH MILD FOCAL CHRONIC INACTIVE GASTRITIS - NEGATIVE FOR HELICOBACTER PYLORI ORGANISMS BY WARTHIN STARRY STAIN - NEGATIVE FOR INTESTINAL METAPLASIA, DYSPLASIA, MALIGNANCY Signing Pathologist Direct Phone Line: [phone] signed by Nadeem Spivey MD on 05/06/2018 at 10:22 [id number] hernia, gastroesophageal reflux disease, rule out H. Pylori Stomach antrum biopsyThe specimen is received in a formalin-filled container labeled with the patient's information and labeled "stomach antrum biopsy" and consists of two round fragments of arechiga tissue both measuring 0.3 cm, entirely submitted in A1. CG/ew Performed. CALCIUM, IONIZED 2018-05-03 07:37:00 Test Item Value Reference Range Comments CALCIUM IONIZED (BEAKER) (test qepd=046) 1.09 mmol/L 1.12-1.27 PH, BLOOD (BEAKER) (test knan=9940) 7.39 RAD, CHEST, 1 VIEW, NON [id number] 06:46:00Reason for exam:->ptxShould this be performed at the bedside?->YesFINAL REPORT Comparison exam: 05/02/2018 No pneumothorax, focal pulmonary consolidation, or significant pleural effusion. Elevation of the right hemidiaphragm stable when compared to 05/02/2018. Stable cardiomediastinal contours. Normal skeleton and soft tissues. Signed:Gagandeep Chun MDReport Verified Date/Time: 2017 06:46:54 Reading Location: [facility] C013X Ortho Consult Reading Room [id number] 06:40:00 Test Item Value Reference Range Comments PHOSPHORUS (BEAKER) (test ghbr=318) 2.7 mg/dL 2.3-4.7 [id number] 06:40:00 Test Item Value Reference Range Comments MAGNESIUM (BEAKER) (test bixk=076) 1.9 mg/dL 1.6-2.6 BASIC METABOLIC [id number] 06:40:00 Test Item Value Reference Range Comments SODIUM (BEAKER) (test 140 meq/L 136-145 xdhk=962) POTASSIUM (BEAKER) (test 3.8 meq/L 3.5-5.1 jkge=940) CHLORIDE (BEAKER) (test 106 meq/L 98-107 mvzt=650) CO2 (BEAKER) (test 25 meq/L 22-29 njor=064) BLOOD UREA NITROGEN 9 mg/dL 7-21 (BEAKER) (test joay=574) CREATININE (BEAKER) (test 0.79 mg/dL 0.57-1.25 crph=106) GLUCOSE RANDOM (BEAKER) 99 mg/dL 70-105 (test vrkl=730) CALCIUM (BEAKER) (test 8.7 mg/dL 8.4-10.2 jqtx=685) EGFR (BEAKER) (test 99 mL/min/1.73 sq m ESTIMATED GFR IS NOT ciaa=7734) ACCURATE CREATININE CLEARANCE IN PREDICTING GLOMERULAR FILTRATION RATE. ESTIMATED GFR IS NOT APPLICABLE FOR DIALYSIS PATIENTS. CBC W/PLT COUNT & AUTO [id number] 06:22:00 Test Item Value Reference Range Comments WHITE BLOOD CELL COUNT (BEAKER) (test nyqw=250) 5.6 K/ L 3.5-10.5 RED BLOOD CELL COUNT (BEAKER) (test bisz=372) 4.17 M/ L 4.63-6.08 HEMOGLOBIN (BEAKER) (test gelr=265) 9.2 GM/DL 13.7-17.5 HEMATOCRIT (BEAKER) (test kqzn=554) 31.4 % 40.1-51.0 MEAN CORPUSCULAR VOLUME (BEAKER) (test oaqd=819) 75.3 fL 79.0-92.2 MEAN CORPUSCULAR HEMOGLOBIN (BEAKER) (test 22.1 pg 25.7-32.2 rkwv=483) MEAN CORPUSCULAR HEMOGLOBIN CONC (BEAKER) (test 29.3 GM/DL 32.3-36.5 ycqd=217) RED CELL DISTRIBUTION WIDTH (BEAKER) (test 16.0 % 11.6-14.4 opnl=677) PLATELET COUNT (BEAKER) (test jwop=322) 250 K/CU MM 150-450 MEAN PLATELET VOLUME (BEAKER) (test ikov=120) 10.4 fL 9.4-12.4 NUCLEATED RED BLOOD CELLS (BEAKER) (test 0 /100 WBC 0-0 frhr=704) NEUTROPHILS RELATIVE PERCENT (BEAKER) (test 78 % uvps=290) LYMPHOCYTES RELATIVE PERCENT (BEAKER) (test 16 % fnvp=083) MONOCYTES RELATIVE PERCENT (BEAKER) (test 5 % cyry=171) EOSINOPHILS RELATIVE PERCENT (BEAKER) (test 0 % hdje=962) BASOPHILS RELATIVE PERCENT (BEAKER) (test 0 % tggp=072) NEUTROPHILS ABSOLUTE COUNT (BEAKER) (test 4.35 K/ L 1.78-5.38 gpik=713) LYMPHOCYTES ABSOLUTE COUNT (BEAKER) (test 0.89 K/ L 1.32-3.57 qqpt=400) MONOCYTES ABSOLUTE COUNT (BEAKER) (test 0.28 K/ L 0.30-0.82 tiji=760) EOSINOPHILS ABSOLUTE COUNT (BEAKER) (test 0.00 K/ L 0.04-0.54 svfl=403) BASOPHILS ABSOLUTE COUNT (BEAKER) (test 0.01 K/ L 0.01-0.08 egih=541) IMMATURE GRANULOCYTES-RELATIVE PERCENT (BEAKER) 0 % 0-1 (test vznh=6941) RAD, CHEST, 1 VIEW, NON [id number] 08:07:00Reason for exam:->ptxShould this be performed at the bedside?->YesFINAL REPORT CLINICAL HISTORY: ptx TECHNIQUE: 1 view of the chest. COMPARISON: 05/01/2018 IMPRESSION: There is no pneumothorax. Elevation of the right hemidiaphragm is again seen.There are no focal infiltrates or increasing effusions. The cardiomediastinal silhouette is magnified by technique. The NGT has been removed. Signed: Lorie Kulkarni MDReport Verified Date/Time: 05/02/2018 08:07: 31 Reading Location: [facility] Radiology Reading Room [id number] 06:05 :00 Test Item Value Reference Range Comments PHOSPHORUS (BEAKER) (test wtid=204) 3.0 mg/dL 2.3-4.7 [id number] 06:05:00 Test Item Value Reference Range Comments MAGNESIUM (BEAKER) (test qrtm=583) 2.0 mg/dL 1.6-2.6 BASIC METABOLIC [id number] 06:05:00 Test Item Value Reference Range Comments SODIUM (BEAKER) (test 138 meq/L 136-145 rium=519) POTASSIUM (BEAKER) (test 3.7 meq/L 3.5-5.1 ypsz=424) CHLORIDE (BEAKER) (test 105 meq/L 98-107 prtd=288) CO2 (BEAKER) (test 28 meq/L 22-29 mphj=697) BLOOD UREA NITROGEN 9 mg/dL 7-21 (BEAKER) (test zjnw=269) CREATININE (BEAKER) (test 0.78 mg/dL 0.57-1.25 lhma=700) GLUCOSE RANDOM (BEAKER) 93 mg/dL 70-105 (test sanr=203) CALCIUM (BEAKER) (test 8.6 mg/dL 8.4-10.2 bydm=488) EGFR (BEAKER) (test 100 mL/min/1.73 sq m ESTIMATED GFR IS NOT swyl=0646) ACCURATE CREATININE CLEARANCE IN PREDICTING GLOMERULAR FILTRATION RATE. ESTIMATED GFR IS NOT APPLICABLE FOR DIALYSIS PATIENTS. PT/[id number] 05:58:00 Test Item Value Reference Range Comments PROTIME (BEAKER) (test bllq=756) 13.9 seconds 11.7-14.7 INR (BEAKER) (test hbyd=566) 1.1 <=5.9 PARTIAL THROMBOPLASTIN TIME (BEAKER) (test 29.3 seconds 22.5-36.0 cqzp=900) RECOMMENDED COUMADIN/WARFARIN INR THERAPY RANGESSTANDARD DOSE: 2.0 - 3.0 Includes: PROPHYLAXIS forvenous thrombosis, systemic embolization; TREATMENT for venous thrombosis and/or pulmonary embolus.HIGH RISK: Target INR is 2.5-3.5 for patients with mechanical heart valves.CALCIUM, [id number] 05:56:00 Test Item Value Reference Range Comments CALCIUM IONIZED (BEAKER) (test xfyo=870) 1.10 mmol/L 1.12-1.27 PH, BLOOD (BEAKER) (test myoj=9199) 7.41 CBC W/PLT COUNT & AUTO [id number] 05:43:00 Test Item Value Reference Range Comments WHITE BLOOD CELL COUNT (BEAKER) (test fwtj=674) 5.7 K/ L 3.5-10.5 RED BLOOD CELL COUNT (BEAKER) (test krkn=939) 4.22 M/ L 4.63-6.08 HEMOGLOBIN (BEAKER) (test zuux=048) 9.2 GM/DL 13.7-17.5 HEMATOCRIT (BEAKER) (test nqxm=872) 31.5 % 40.1-51.0 MEAN CORPUSCULAR VOLUME (BEAKER) (test dmkd=696) 74.6 fL 79.0-92.2 MEAN CORPUSCULAR HEMOGLOBIN (BEAKER) (test 21.8 pg 25.7-32.2 voca=901) MEAN CORPUSCULAR HEMOGLOBIN CONC (BEAKER) (test 29.2 GM/DL 32.3-36.5 qfyv=736) RED CELL DISTRIBUTION WIDTH (BEAKER) (test 15.9 % 11.6-14.4 mmzt=547) PLATELET COUNT (BEAKER) (test hebf=035) 237 K/CU MM 150-450 MEAN PLATELET VOLUME (BEAKER) (test ddrh=859) 9.5 fL 9.4-12.4 NUCLEATED RED BLOOD CELLS (BEAKER) (test 0 /100 WBC 0-0 slvq=123) NEUTROPHILS RELATIVE PERCENT (BEAKER) (test 65 % nklv=304) LYMPHOCYTES RELATIVE PERCENT (BEAKER) (test 24 % dkjm=501) MONOCYTES RELATIVE PERCENT (BEAKER) (test 10 % rppu=896) EOSINOPHILS RELATIVE PERCENT (BEAKER) (test 1 % poto=391) BASOPHILS RELATIVE PERCENT (BEAKER) (test 0 % fslu=748) NEUTROPHILS ABSOLUTE COUNT (BEAKER) (test 3.67 K/ L 1.78-5.38 flts=511) LYMPHOCYTES ABSOLUTE COUNT (BEAKER) (test 1.35 K/ L 1.32-3.57 bicv=486) MONOCYTES ABSOLUTE COUNT (BEAKER) (test 0.58 K/ L 0.30-0.82 ayrp=861) EOSINOPHILS ABSOLUTE COUNT (BEAKER) (test 0.04 K/ L 0.04-0.54 iagd=985) BASOPHILS ABSOLUTE COUNT (BEAKER) (test 0.02 K/ L 0.01-0.08 dfla=027) IMMATURE GRANULOCYTES-RELATIVE PERCENT (BEAKER) 0 % 0-1 (test kmix=1618) TROPONIN [id number] 13:31:00 Test Item Value Reference Range Comments TROPONIN I (BEAKER) (test htzb=697) < ng/mL 0.00-0.03 Troponin I (TnI) levels must be interpreted in the context of the presenting symptoms and the clinical findings. Elevated TnI levels indicate myocardial damage, but are not specific for ischemic heart disease. Elevated TnI levels are seen in patients with other cardiac conditions (including myocarditis and congestive heart failure), and slight TnI elevations occur in patients with other conditions, including sepsis, renal failure, acidosis, acute neurological disease, and persistent tachyarrhythmia.B-TYPE NATRIURETIC FACTOR (BNP) 13:28:00 Test Item Value Reference Range Comments B-TYPE NATRIURETIC PEPTIDE (BEAKER) (test hiiv=607) 74 pg/mL 0-100 [id number] 13:25:00 Test Item Value Reference Range Comments LIPASE (BEAKER) (test rgtj=293) 93 U/L 8-78 HEPATIC FUNCTION [id number] 13:25:00 Test Item Value Reference Range Comments TOTAL PROTEIN (BEAKER) (test ijnf=531) 7.0 gm/dL 6.0-8.3 ALBUMIN (BEAKER) (test ntce=9429) 4.0 g/dL 3.5-5.0 BILIRUBIN TOTAL (BEAKER) (test ozpw=830) 0.3 mg/dL 0.2-1.2 BILIRUBIN DIRECT (BEAKER) (test xnrc=391) 0.1 mg/dL 0.1-0.5 ALKALINE PHOSPHATASE (BEAKER) (test jwfr=321) 95 U/L 40-150 AST (SGOT) (BEAKER) (test kimy=872) 22 U/L 5-34 ALT (SGPT) (BEAKER) (test hiyo=381) 21 U/L 6-55 U/S, ABDOMINAL, [id number] 11:27:00Abdomen limited area? Add comment if clarification is needed.->Right upper quadrantReason for exam:->epigastric /RUQ painFINAL REPORT TECHNIQUE: Grayscale ultrasound of the right abdomen. INDICATION: 62-year-old man with epigastric and right upper quadrant pain. COMPARISON: None. FINDINGS: MIDLINEVASCULATURE: The inferior vena cava is incompletely visualized secondary to overlying bowel gas. Portal vein is patent. The maximum visualized aortic diameter is 1.4 cm. LIVER: The liver is normal in size and echogenicity. Smooth liver contour. No focal lesions. BILIARY:Gallbladder: No gallstones or sludge. No gallbladder wall thickening, pericholecystic fluid, or distention. Negative sonographic Jerry sign.Common bile duct is not clearly identified, likely secondary to overlying bowel gas. No intrahepatic biliary ductal dilatation. PANCREAS: Incompletely visualized due to overlying bowel gas. PERITONEUM: No free fluid. RIGHT KIDNEY: Normal in size. No hydronephrosis. No sonographically evident solid mass lesion. Cyst in the upper pole measures 2.3 x 1.9 x 1.9 cm. IMPRESSION:Limited evaluation secondary to overlying bowel gas. No abnormalities in the visualized right abdomen. Signed: Jose Forbes MDReport Verified Date/Time: 05/01/2018 11:27:20 Reading Location: [address] Ultrasound Reading Room RAD, CHEST, 1 VIEW, NON [id number] 08:27:00Reason for exam:->ptxShould this be performed at the bedside?->YesFINAL REPORT Chest one view Discussion: NG tube extends to stomach. There is elevation of the right hemidiaphragm nonspecific. Lungs otherwise clear. No effusion or pneumothorax.Signed: Doug Arguelloeport Verified Date/Time: 05/01/2018 08:27 :34 Reading Location: [facility] Radiology Reading Room [id number] 06:55: 00 Test Item Value Reference Range Comments PHOSPHORUS (BEAKER) (test twwc=860) 3.4 mg/dL 2.3-4.7 [id number] 06:55:00 Test Item Value Reference Range Comments MAGNESIUM (BEAKER) (test istl=758) 2.0 mg/dL 1.6-2.6 BASIC METABOLIC [id number] 06:55:00 Test Item Value Reference Range Comments SODIUM (BEAKER) (test 140 meq/L 136-145 mmxr=942) POTASSIUM (BEAKER) (test 4.0 meq/L 3.5-5.1 upcw=536) CHLORIDE (BEAKER) (test 107 meq/L 98-107 lier=365) CO2 (BEAKER) (test 29 meq/L 22-29 zaxx=379) BLOOD UREA NITROGEN 11 mg/dL 7-21 (BEAKER) (test posa=299) CREATININE (BEAKER) (test 0.78 mg/dL 0.57-1.25 hrsi=349) GLUCOSE RANDOM (BEAKER) 92 mg/dL 70-105 (test cluz=753) CALCIUM (BEAKER) (test 8.5 mg/dL 8.4-10.2 bnhd=620) EGFR (BEAKER) (test 100 mL/min/1.73 sq m ESTIMATED GFR IS NOT kwyx=3053) ACCURATE CREATININE CLEARANCE IN PREDICTING GLOMERULAR FILTRATION RATE. ESTIMATED GFR IS NOT APPLICABLE FOR DIALYSIS PATIENTS. CALCIUM, [id number] 06:28:00 Test Item Value Reference Range Comments CALCIUM IONIZED (BEAKER) (test tyao=590) 1.10 mmol/L 1.12-1.27 PH, BLOOD (BEAKER) (test imli=9906) 7.35 CBC W/PLT COUNT & AUTO [id number] 06:20:00 Test Item Value Reference Range Comments WHITE BLOOD CELL COUNT (BEAKER) (test bbhi=253) 4.0 K/ L 3.5-10.5 RED BLOOD CELL COUNT (BEAKER) (test cswt=182) 4.21 M/ L 4.63-6.08 HEMOGLOBIN (BEAKER) (test fuyw=343) 9.2 GM/DL 13.7-17.5 HEMATOCRIT (BEAKER) (test zuxv=979) 31.9 % 40.1-51.0 MEAN CORPUSCULAR VOLUME (BEAKER) (test ieqb=623) 75.8 fL 79.0-92.2 MEAN CORPUSCULAR HEMOGLOBIN (BEAKER) (test 21.9 pg 25.7-32.2 wyll=954) MEAN CORPUSCULAR HEMOGLOBIN CONC (BEAKER) (test 28.8 GM/DL 32.3-36.5 onib=507) RED CELL DISTRIBUTION WIDTH (BEAKER) (test 15.8 % 11.6-14.4 gubi=055) PLATELET COUNT (BEAKER) (test rvrk=820) 233 K/CU MM 150-450 MEAN PLATELET VOLUME (BEAKER) (test hbdq=653) 9.9 fL 9.4-12.4 NUCLEATED RED BLOOD CELLS (BEAKER) (test 0 /100 WBC 0-0 sjwe=208) NEUTROPHILS RELATIVE PERCENT (BEAKER) (test 52 % iizd=229) LYMPHOCYTES RELATIVE PERCENT (BEAKER) (test 34 % hkud=666) MONOCYTES RELATIVE PERCENT (BEAKER) (test 11 % hmuh=564) EOSINOPHILS RELATIVE PERCENT (BEAKER) (test 3 % ktge=000) BASOPHILS RELATIVE PERCENT (BEAKER) (test 1 % mzfz=734) NEUTROPHILS ABSOLUTE COUNT (BEAKER) (test 2.07 K/ L 1.78-5.38 tlug=016) LYMPHOCYTES ABSOLUTE COUNT (BEAKER) (test 1.34 K/ L 1.32-3.57 fylr=349) MONOCYTES ABSOLUTE COUNT (BEAKER) (test 0.45 K/ L 0.30-0.82 lrwy=448) EOSINOPHILS ABSOLUTE COUNT (BEAKER) (test 0.10 K/ L 0.04-0.54 syey=012) BASOPHILS ABSOLUTE COUNT (BEAKER) (test 0.03 K/ L 0.01-0.08 cbli=846) IMMATURE GRANULOCYTES-RELATIVE PERCENT (BEAKER) 0 % 0-1 (test xkwk=7356) PROTHROMBIN TIME/[id number] 06:19:00 Test Item Value Reference Range Comments PROTIME (BEAKER) (test ccpk=349) 14.2 seconds 11.7-14.7 INR (BEAKER) (test mawq=840) 1.1 <=5.9 RECOMMENDED COUMADIN/WARFARIN INR THERAPY RANGESSTANDARD DOSE: 2.0 - 3.0 Includes: PROPHYLAXIS forvenous thrombosis, systemic embolization; TREATMENT for venous thrombosis and/or pulmonary embolus.HIGH RISK: Target INR is 2.5-3.5 for patients with mechanical heart valves.[id number] 06:19:00 Test Item Value Reference Range Comments PARTIAL THROMBOPLASTIN TIME (BEAKER) (test 30.5 seconds 22.5-36.0 pzvp=370)
--- OUTSIDE RECORDS SUMMARY | 2018-12-04 15:04 | XMS REPORT | Clinical Summary ---
:1955 Author Organization [facility] Address [address] [place] [address] Care Team Providers Name Role Phone Tamiko Primary Care Provider Allergies No Known Allergies Medications Medication Sig Dispensed Refills Start Date End Date Status metoprolol Take 100 mg by 0 Active (TOPROL-XL) 100 MG mouth every 24 hr tablet morning. losartan (COZAAR) Take 50 mg by 0 Active 50 MG tablet mouth every morning. ALPRAZolam (XANAX) Take 1 mg by 0 Active 1 MG tablet mouth nightly. pantoprazole Take 40 mg by 0 Active (PROTONIX) 40 MG mouth 2 (two) tablet times daily. ibuprofen Take 800 mg by 0 Active (ADVIL,MOTRIN) 800 mouth every 6 MG tablet (six) hours as needed for Pain. pravastatin Take 20 mg by 0 Active (PRAVACHOL) 20 MG mouth daily. tablet ibuprofen Take 800 mg by 0 Discontinued (ADVIL,MOTRIN) 600 mouth every 6 8 MG tablet (six) hours as needed for Pain . sulfamethoxazole-t Take 1 tablet 20 tablet 0 05/03/2018 rimethoprim (160 mg of 8 (BACTRIM DS) trimethoprim 800-160 mg per total) by mouth 2 tablet (two) times daily for 10 days. Active Problems Problem Noted Date Hiatal hernia 04/30/2018 Encounters Date Type Specialty Care Team Description 05/02/2018 Anesthesia Event Gastroenterology Crys Conway, CHARLES 05/02/2018 Surgery Gastroenterology Suman Murdock MD ENDOSCOPY,BIOPSY 04/30/2018 - Hospital Encounter Cardiology Suman Murdock 05/03/2018 MD Efrain after 12/03/2017 Social History Tobacco Use Types Packs/Day Years Used Date Never Smoker Sex Assigned at Date Recorded Not on file Job Start Date Occupation Industry Not on file Not on file Not on file Travel History Travel Start Travel End No recent travel history available. Last Filed Vital Signs Vital Sign Reading Time Taken Blood Pressure 114/61 05/03/2018 11:11 AM CDT Pulse 58 05/03/2018 11:36 AM CDT Temperature 36.8 C (98.2 F) 05/03/2018 11:11 AM CDT Respiratory Rate 18 05/03/2018 11:36 AM CDT Oxygen Saturation 96% 05/03/2018 11:36 AM CDT Inhaled Oxygen Concentration - - Weight 94.1 kg (207 lb 8 oz) 05/03/2018 7:42 AM CDT Height 172.7 cm (5' 8") 05/01/2018 5:51 AM CDT Body Mass Index 31.55 05/03/2018 7:42 AM CDT Plan of Treatment Not on file Procedures Procedure Name Priority Date/Time Associated Comments Diagnosis XR CHEST 1 VIEW Routine 05/03/2018 6:37 Results for this PORTABLE/BEDSIDE AM CDT procedure are in the results section. CBC W/PLT COUNT & Routine 05/03/2018 4:17 Results for this AUTO DIFFERENTIAL AM CDT procedure are in the results section. PHOSPHORUS Routine 05/03/2018 4:17 Results for this AM CDT procedure are in the results section. MAGNESIUM Routine 05/03/2018 4:17 Results for this AM CDT procedure are in the results section. CBC W/PLT COUNT & Routine 05/03/2018 4:17 Results for this AUTO DIFFERENTIAL AM CDT procedure are in the results section. CALCIUM, IONIZED Routine 05/03/2018 4:17 Results for this AM CDT procedure are in the results section. BASIC METABOLIC PANEL Routine 05/03/2018 4:17 Results for this (7) AM CDT procedure are in the results section. TRANSFUSION SERVICE 05/02/2018 6:00 REPORT - SCAN PM CDT TISSUE EXAM AP Routine 05/02/2018 4:41 Results for this PM CDT procedure are in the results section. UPPER 05/02/2018 4:00 Hiatal hernia ENDOSCOPY,BIOPSY PM CDT Gastroesophageal reflux disease, esophagitis presence not specified Special Needs (C-ARM) XR CHEST 1 VIEW Routine 05/02/2018 7:25 AM CDT Results for this PORTABLE/BEDSIDE procedure are in the results section. CBC W/PLT COUNT & AUTO Routine 05/02/2018 5:12 AM CDT Results for this DIFFERENTIAL procedure are in the results section. PT/APTT Routine 05/02/2018 5:12 AM CDT PHOSPHORUS Routine 05/02/2018 5:12 AM CDT MAGNESIUM Routine 05/02/2018 5:12 AM CDT CBC W/PLT COUNT & AUTO Routine 05/02/2018 5:12 AM CDT Results for this DIFFERENTIAL procedure are in the results section. CALCIUM, IONIZED Routine 05/02/2018 5:12 AM CDT BASIC METABOLIC PANEL (7) Routine 05/02/2018 5:12 AM CDT ECHOCARDIOGRAM REPORT - SCAN 05/01/2018 4:20 PM CDT TROPONIN I Routine 05/01/2018 12:50 PM CDT B-TYPE NATRIURETIC FACTOR Routine 05/01/2018 12:50 PM CDT Results for this (BNP) procedure are in the results section. LIPASE Routine 05/01/2018 12:50 PM CDT HEPATIC FUNCTION PANEL Routine 05/01/2018 12:50 PM CDT 2D ECHO MODE W/O DOPPLER STAT 05/01/2018 11:54 AM CDT US ABDOMEN LIMITED STAT 05/01/2018 10:30 AM CDT ECG 12-LEAD Routine 05/01/2018 9:19 AM CDT XR CHEST 1 VIEW STAT 05/01/2018 8:03 AM CDT Results for this PORTABLE/BEDSIDE procedure are in the results section. CALCIUM, IONIZED Routine 05/01/2018 5:46 AM CDT CBC W/PLT COUNT & AUTO Routine 05/01/2018 5:45 AM CDT Results for this DIFFERENTIAL procedure are in the results section. TYPE AND SCREEN, AUTOMATED Routine 05/01/2018 5:45 AM CDT PROTHROMBIN TIME/INR Routine 05/01/2018 5:45 AM CDT APTT Routine 05/01/2018 5:45 AM CDT CBC W/PLT COUNT & AUTO Routine 05/01/2018 5:45 AM CDT Results for this DIFFERENTIAL procedure are in the results section. PHOSPHORUS Routine 05/01/2018 5:45 AM CDT MAGNESIUM Routine 05/01/2018 5:45 AM CDT BASIC METABOLIC PANEL (7) Routine 05/01/2018 5:45 AM CDT after 12/03/2017 Results XR chest 1 view portable / bedside (05/03/2018 6:37 AM CDT)Only the most recent of3 resultswithin the time period is included. Narrative Performed At FINAL REPORT [facility] Comparison exam: 05/02/2018 No pneumothorax, focal pulmonary consolidation, or significant pleural effusion. Elevation of the right hemidiaphragm stable when compared to 05/02/2018. Stable cardiomediastinal contours. Normal skeleton and soft tissues. Signed: Gagandeep Chun MD Report Verified Date/Time:05/03/2018 06:46:54 Reading Location: [address] Ortho Consult Reading Room Procedure Note Interface, External Ris In - 11/10/2018 3:53 PM [employer] FINAL REPORT Comparison exam: 05/02/2018 No pneumothorax, focal pulmonary consolidation, or significant pleural effusion. Elevation of the right hemidiaphragm stable when compared to 05/02/2018. Stable cardiomediastinal contours. Normal skeleton and soft tissues. Signed: Gagandeep Chun MD Report Verified Date/Time: 05/03/2018 06:46:54 Reading Location: [facility] [id number] Ortho Consult Reading Room Performing Organization Address City/State/Zipcode Phone Number [facility] Calcium, Ionized (05/03/2018 4:17 AM CDT)Only the most recent of3 resultswithin the time period is included. Calcium, Ion 1.09 (L) 1.12 - 1.27 mmol/L [facility] pH, Blood 7.39 [facility] Specimen Blood - Arm, Right Performing Organization Address City/State/Zipcode Phone Number [facility] [address] [place] [address] CENTER CBC with platelet count + automated diff (05/03/2018 4:17 AM CDT)Only the most recent of3 resultswithin the time period is included. WBC 5.6 3.5 - 10.5 K/L [facility] RBC 4.17 (L) 4.63 - 6.08 M/L [facility] Hemoglobin 9.2 (L) 13.7 - 17.5 GM/DL [facility] Hematocrit 31.4 (L) 40.1 - 51.0 % [facility] MCV 75.3 (L) 79.0 - 92.2 fL [facility] MCH 22.1 (L) 25.7 - 32.2 pg [facility] MCHC 29.3 (L) 32.3 - 36.5 GM/DL [facility] RDW 16.0 (H) 11.6 - 14.4 % [facility] Platelets 250 150 - 450 K/CU MM [facility] MPV 10.4 9.4 - 12.4 fL [facility] nRBC 0 0 - 0 /100 WBC [facility] % Neutros 78 % [facility] % Lymphs 16 % [facility] % Monos 5 % [facility] % Eos 0 % [facility] % Baso 0 % [facility] # Neutros 4.35 1.78 - 5.38 K/L [facility] # Lymphs 0.89 (L) 1.32 - 3.57 K/L [facility] # Monos 0.28 (L) 0.30 - 0.82 K/L [facility] # Eos 0.00 (L) 0.04 - 0.54 K/L [facility] # Baso 0.01 0.01 - 0.08 K/L [facility] Immature Granulocytes-Relative 0 0 - 1 % [facility] Specimen Blood - Arm, Right Performing Organization Address City/[facility]/Zipcode Phone Number [address] [address] CENTER Phosphorus (05/03/2018 4:17 AM CDT)Only the most recent of3 resultswithin the time period is included. Phosphorus 2.7 2.3 - 4.7 mg/dL [facility] Specimen Blood - Arm, Right Performing Organization Address [facility] Phone Number [address] [address] CENTER Magnesium (05/03/2018 4:17 AM CDT)Only the most recent of3 resultswithin the time period is included. Magnesium 1.9 1.6 - 2.6 mg/dL [facility] Specimen Blood - Arm, Right Performing Organization Address [facility]/Zipcode Phone Number [address] [address] [phone] CENTER Basic metabolic panel (05/03/2018 4:17 AM CDT)Only the most recent of3 resultswithin the time period is included. Sodium 140 136 - 145 meq/L [facility] Potassium 3.8 3.5 - 5.1 meq/L [facility] Chloride 106 98 - 107 meq/L [facility] CO2 25 22 - 29 meq/L [facility] BUN 9 7 - 21 mg/dL [facility] Creatinine 0.79 0.57 - 1.25 mg/dL [facility] Glucose 99 70 - 105 mg/dL [facility] Calcium 8.7 8.4 - 10.2 mg/dL [facility] EGFR 99Comment: ESTIMATED GFR IS mL/min/1.73 sq m [facility] NOT ACCURATE CREATININE [facility] CENTER CLEARANCE IN PREDICTING GLOMERULAR FILTRATION RATE. ESTIMATED GFR IS NOT APPLICABLE FOR DIALYSIS PATIENTS. Specimen Blood - Arm, Right Performing Organization Address City/State/Zipcode Phone Number [facility] [address] [place] [address] [phone] CENTER TRANSFUSION SERVICE REPORT - SCAN (05/02/2018 6:00 PM CDT) Narrative Performed At Tissue Exam (05/02/2018 4:41 PM CDT) Case Report Surgical Pathology Report Case: [id number] [facility] Authorizing Provider:Suamn Murdock MD Collected: 05/02/2018 1641 [facility] Ordering Location: [address] Received: 05/05/2018 075 Service Pathologist: Nadeem Spivey MD Specimen:Stomach,Antrum, for hpylori DIAGNOSIS A. STOMACH, ANTRUM BIOPSIES: [facility] - TRANSITIONAL/BODY MUCOSA WITH MILD FOCAL CHRONIC INACTIVE GASTRITIS [facility] - NEGATIVE FOR HELICOBACTER PYLORI ORGANISMS BY WARTHIN STARRY STAIN - NEGATIVE FOR INTESTINAL METAPLASIA, DYSPLASIA, MALIGNANCY Signing Pathologist Direct Phone Line: [phone] CPT Code(s) 34286 [facility] [address] [facility] CLINICAL HISTORY Hiatal hernia, [facility] gastroesophageal reflux [facility] disease, rule out H. Pylori SPECIMEN SOURCE Stomach antrum biopsy [facility] GROSS DESCRIPTION The specimen is received in a [facility] formalin-filled container [facility] labeled with the patient's information and labeled "stomach antrum biopsy" and consists of two round fragments of arechiga tissue both measuring 0.3 cm, entirely submitted in A1. CG/ew MICROSCOPIC DESCRIPTION Performed. [facility] Specimen Tissue - Stomach, Antrum Performing Organization Address City/[facility] Phone Number [address] [address] [phone] [facility] PT/aPTT (05/02/2018 5:12 AM CDT) Protime 13.9 11.7 - 14.7 seconds [facility] INR 1.1 <=5.9 [facility] PTT 29.3 22.5 - 36.0 seconds [facility] Specimen Blood Narrative Performed At [facility] RECOMMENDED COUMADIN/WARFARIN INR THERAPY RANGES STANDARD DOSE: 2.0 - 3.0 Includes: PROPHYLAXIS for venous thrombosis, systemic embolization; TREATMENT for venous thrombosis and/or pulmonary embolus. HIGH RISK: Target INR is 2.5-3.5 for patients with mechanical heart valves. Performing Organization Address City/[facility] Phone Number [address] [address] [phone] [facility] ECHOCARDIOGRAM REPORT - SCAN (05/01/2018 4:20 PM CDT) Narrative Performed At Troponin I (05/01/2018 12:50 PM CDT) Troponin I <0.01 0.00 - 0.03 ng/mL [facility] Specimen Blood - Arm, Left Narrative Performed At [facility] Troponin I (TnI) levels must be interpreted [...] failure, acidosis, acute neurological disease, and persistent tachyarrhythmia. Performing Organization Address City/[facility]/Zipcode Phone Number [address] [address] CENTER B-type Natriuretic Factor (BNP) (05/01/2018 12:50 PM CDT) BNP 74 0 - 100 pg/mL [facility] Specimen Blood - Arm, Left Performing Organization Address [facility] Phone Number [address] [address] CENTER Lipase (05/01/2018 12:50 PM CDT) Lipase 93 (H) 8 - 78 U/L [facility] Specimen Blood - Arm, Left Performing Organization Address [facility] Phone Number [address] [address] [facility] Hepatic function panel (05/01/2018 12:50 PM CDT) Protein, Total 7.0 6.0 - 8.3 gm/dL [facility] Albumin 4.0 3.5 - 5.0 g/dL [facility] Total Bilirubin 0.3 0.2 - 1.2 mg/dL [facility] Bilirubin, Direct 0.1 0.1 - 0.5 mg/dL [facility] Alkaline Phosphatase 95 40 - 150 U/L [facility] AST 22 5 - 34 U/L [facility] ALT 21 6 - 55 U/L [facility] Specimen Blood - Arm, Left Performing Organization Address [facility] Phone Number [address] [address] CENTER 2D Echo W/O Doppler(No Doppler) (05/01/2018 11:54 AM CDT) Ejection Fraction [facility] Narrative Performed At Transthoracic Echocardiography Report (TTE) [facility] Dem[facility] Patient Name REBECCA, Date of Study 05/01/2018 BINU [id number] GenderMale Visit Number [id number] Soheila [id number] m Number [id number] Number Date of Birth1955 Referring Physician Suman Murdock Age62 year(s) 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 Clinical History HGB 9.2 HCT 31.9 % Hiatal Hernia Height: 68 inches Weight: 95.25 kg (210 lbs) BSA: 2.09 m^2 BMI: 31.93 kg/m^2 HR: 48 bpm BP: 94/50 mmHg Summary The left ventricle is chamber size (by vol index) is normal (male - LVED vol - 34-74ml/m2). Normal LV wall thickness. All of the LV segments are hyperkinetic . Global LV systolic function hyperdynamic . LVEF by Thao's method of disk assessment is increased (>70%) . The LVEF was measured using Thao's bi-plane method of disk . Grade 1 diastolic dysfunction (impaired relaxation and low-normal LA pressure). The right ventricular chamber size and systolic function are within normal limits. Unable to estimate peak systolic PA pressure; inadequate TR velocity signal. No pericardial effusion is visualized. Previous Study No prior studies available for comparison. Signature Findings Technical Quality: Technically adequate exam. Left Ventricle The left ventricle is chamber size (by vol index) is normal (male - LVED vol - 34-74ml/m2). No rmal LV wall thickness. Al l of the LV segments are hyperkinetic . Gl obal LV systolic function hyperdynamic . LV EF by Thao's method of disk assessment is in creased (>70%) . Th e LVEF was measured using Thao's bi-plane me thod of disk . Gr chico 1 diastolic dysfunction (impaired relaxation an d low-normal LA pressure). Left AtriumLA size is moderately enlarged (42-48 ml/m2) . Right VentricleThe right ventricular chamber size and systolic fu nction are within normal limits. Right Atrium RA cavity size is normal . Aortic Valve A trace of aortic regurgitation. No rmal AoV structure. Mitral Valve Mild MV leaflet thickening. Tr dave mitral regurgitation. Tricuspid ValveTV structure is normal. A trace of tricuspid regurgitation. Un able to estimate peak systolic PA pressure; in adequate TR velocity signal. Pulmonic Valve Normal PV structure and function by limited views an d Doppler. AortaAortic root size (Sinus of Valsalva diameter) is mi ldly dilated. 4.2 cm PericardiumNo pericardial effusion is visualized. IVC/SVC/PA/PV/PleuralThe estimated RA pressure by IVC dynamics in determinate . Th e inferior vena cava is not visualized. Chambers/Structures Left Atrium LA Volume: 87.71 ml LA Vol. Index: 42 ml/m^2 Left Ventricle LVIDd: 5.29 cm LVIDs: 2.24 cm LV Septum Diastolic: 1.14 cm LV PW Diastolic: 1.1 cm LV FS: 57.7 % LVEDV Thao's:155.99 ml LVESV Thao's:41.94 mlLVEDVI: 75 ml/m^2 LVEF Thao's: 73.1 %LVESV I: 20 ml/m^2 LVOT Diameter: 2.42 cm Aorta Ao Root S of Ingrid.: 4.22 cmAortic Arch: 3.66 cm Doppler/Quantitative Measurements Mitral Valve MV Peak E-Wave: 0.82 m/sMV Peak A-Wave: 0.7 m/s E/A Ratio: 1.17 Peak Gradient: 2.69 mmHg Deceleration Time: 181.9 msec MV Layton. Peak: Tissue Doppler E' Septal Velocity: 0.09 m/sE/E': 8.67 Aortic Valve Peak Velocity: 1.57 m/s Mean Velocity: 1.1 m/s Peak Gradient: 9.83 mmHgMean Gradient: 5.3 mmHg AV Area (continuity): 4.23 cm^2 AV VTI: 33.82 cm AV DVI: 0.92 LVOT Peak Velocity: 1.31 m/s Peak Gradient: 6.85 mmHg Mean Velocity: 0.93 m/s Mean Gradient: 3.82 mmHg LVOT Diameter: 2.42 cmLVOT VTI: 31.1 cm LVOT Area: 4.6 cm^2 LVOT SV:142.98 ml LVOT CO: 6.86 l/min LVOT CI: 3.28 l/min/m^2 Procedure Note Interface, External Ris In - 05/01/2018 3:34 PM CDT Transthoracic Echocardiography Report (TTE) Demographics Patient Name REBECCA, Date of Study 05/01/2018 BINU Gender Male Visit Number [id number] Race Unknown Room Number 1011 Number Date of 1955 Referring Physician Suman Murdock Age 62 year(s) 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 Clinical History HGB 9.2 HCT 31.9 % Hiatal Hernia Height: 68 inches Weight: 95.25 kg (210 lbs) BSA: 2.09 m^2 BMI: 31.93 kg/m^2 HR: 48 bpm BP: 94/50 mmHg Summary The left ventricle is chamber size (by vol index) is normal (male - LVED vol - 34-74ml/m2). Normal LV wall thickness. All of the LV segments are hyperkinetic . Global LV systolic function hyperdynamic . LVEF by Thao's method of disk assessment is increased (>70%) . The LVEF was measured using Thao's bi-plane method of disk . Grade 1 diastolic dysfunction (impaired relaxation and low-normal LA pressure). The right ventricular chamber size and systolic function are within normal limits. Unable to estimate peak systolic PA pressure; inadequate TR velocity signal. No pericardial effusion is visualized. Previous Study No prior studies available for comparison. Signature Findings Technical Quality: Technically adequate exam. Left Ventricle The left ventricle is chamber size (by vol index) is normal (male - LVED vol - 34-74ml/m2). Normal LV wall thickness. All of the LV segments are hyperkinetic . Global LV systolic function hyperdynamic . LVEF by Thao's method of disk assessment is increased (>70%) . The LVEF was measured using Thao's bi-plane method of disk . Grade 1 diastolic dysfunction (impaired relaxation and low-normal LA pressure). Left Atrium LA size is moderately enlarged (42-48 ml/m2) . Right Ventricle The right ventricular chamber size and systolic function are within normal limits. Right Atrium RA cavity size is normal . Aortic Valve A trace of aortic regurgitation. Normal AoV structure. Mitral Valve Mild MV leaflet thickening. Trace mitral regurgitation. Tricuspid Valve TV structure is normal. A trace of tricuspid regurgitation. Unable to estimate peak systolic PA pressure; inadequate TR velocity signal. Pulmonic Valve Normal PV structure and function by limited views and Doppler. Aorta Aortic root size (Sinus of Valsalva diameter) is mildly dilated. 4.2 cm Pericardium No pericardial effusion is visualized. IVC/SVC/PA/PV/Pleural The estimated RA pressure by IVC dynamics indeterminate . The inferior vena cava is not visualized. Chambers/Structures Left Atrium LA Volume: 87.71 ml LA Vol. Index: 42 ml/m^2 Left Ventricle LVIDd: 5.29 cm LVIDs: 2.24 cm LV Septum Diastolic: 1.14 cm LV PW Diastolic: 1.1 cm LV FS: 57.7 % LVEDV Thao's:155.99 ml LVESV Thao's:41.94 ml LVEDVI: 75 ml/m^2 LVEF Thao's: 73.1 % LVESVI: 20 ml/m^2 LVOT Diameter: 2.42 cm Aorta Ao Root S of Ingrid.: 4.22 cm Aortic Arch: 3.66 cm Doppler/Quantitative Measurements Mitral Valve MV Peak E-Wave: 0.82 m/s MV Peak A-Wave: 0.7 m/s E/A Ratio: 1.17 Peak Gradient: 2.69 mmHg Deceleration Time: 181.9 msec MV Layton. Peak: Tissue Doppler E' Septal Velocity: 0.09 m/s E/E': 8.67 Aortic Valve Peak Velocity: 1.57 m/s Mean Velocity: 1.1 m/s Peak Gradient: 9.83 mmHg Mean Gradient: 5.3 mmHg AV Area (continuity): 4.23 cm^2 AV VTI: 33.82 cm AV DVI: 0.92 LVOT Peak Velocity: 1.31 m/s Peak Gradient: 6.85 mmHg Mean Velocity: 0.93 m/s Mean Gradient: 3.82 mmHg LVOT Diameter: 2.42 cm LVOT VTI: 31.1 cm LVOT Area: 4.6 cm^2 LVOT SV:142.98 ml LVOT CO: 6.86 l/min LVOT CI: 3.28 l/min/m^2 Performing Organization Address City/State/[facility] Phone Number [facility] abdomen limited (05/01/2018 10:30 AM CDT) Narrative Performed At FINAL REPORT [facility] TECHNIQUE: Grayscale ultrasound of the right abdomen. INDICATION: 62-year-old man with epigastric and right upper quadrant pain. COMPARISON: None. FINDINGS: MIDLINE VASCULATURE: The inferior vena cava is incompletely visualized secondary to overlying bowel gas. Portal vein is patent. The maximum visualized aortic diameter is 1.4 cm. LIVER: The liver is normal in size and echogenicity. Smooth liver contour. No focal lesions. BILIARY: Gallbladder: No gallstones or sludge. No gallbladder wall thickening, pericholecystic fluid, or distention. Negative sonographic Jerry sign. Common bile duct is not clearly identified, likely secondary to overlying bowel gas. No intrahepatic biliary ductal dilatation. PANCREAS: Incompletely visualized due to overlying bowel gas. PERITONEUM: No free fluid. RIGHT KIDNEY: Normal in size. No hydronephrosis. No sonographically evident solid mass lesion. Cyst in the upper pole measures 2.3 x 1.9 x 1.9 cm. IMPRESSION: Limited evaluation secondary to overlying bowel gas. No abnormalities in the visualized right abdomen. Signed: Jose Forbes MD Report Verified Date/Time:05/01/2018 11:27:20 Reading Location: [address] Ultrasound Reading Room Procedure Note Interface, External Ris In - 05/01/2018 11:29 AM CDT FINAL REPORT TECHNIQUE: Grayscale ultrasound of the right abdomen. INDICATION: 62-year-old man with epigastric and right upper quadrant pain. COMPARISON: None. FINDINGS: MIDLINE VASCULATURE: The inferior vena cava is incompletely visualized secondary to overlying bowel gas. Portal vein is patent. The maximum visualized aortic diameter is 1.4 cm. LIVER: The liver is normal in size and echogenicity. Smooth liver contour. No focal lesions. BILIARY: Gallbladder: No gallstones or sludge. No gallbladder wall thickening, pericholecystic fluid, or distention. Negative sonographic Jerry sign. Common bile duct is not clearly identified, likely secondary to overlying bowel gas. No intrahepatic biliary ductal dilatation. PANCREAS: Incompletely visualized due to overlying bowel gas. PERITONEUM: No free fluid. RIGHT KIDNEY: Normal in size. No hydronephrosis. No sonographically evident solid mass lesion. Cyst in the upper pole measures 2.3 x 1.9 x 1.9 cm. IMPRESSION: Limited evaluation secondary to overlying bowel gas. No abnormalities in the visualized right abdomen. Signed: Jose Forbes MD Report Verified Date/Time: 05/01/2018 11:27:20 Reading Location: [address] Ultrasound Reading Room Performing Organization Address City/State/Zipcode Phone Number [facility] ECG 12 lead (05/01/2018 9:19 AM CDT) Narrative Performed At Ventricular Rate 69 BPM GE MUSE Atrial Rate 69 BPM P-R Interval 194 ms QRS Duration 92 ms Q-T Interval 418 ms QTC Calculation(Bazett) 447 ms P Frederick 13 degrees R Frederick 17 degrees T Frederick 23 degrees Sinus rhythm with occasional Premature ventricular complexes Borderline criteria forInferior infarct , age undetermined Abnormal ECG No previous ECGs available Confirmed by Zeynep ELIAS, HERVE ([id number]) on 05/02/2018 9:21:39 AM Procedure Note Interface, External Ris In - 05/02/2018 9:21 AM CDT Ventricular Rate 69 BPM Atrial Rate 69 BPM P-R Interval 194 ms QRS Duration 92 ms Q-T Interval 418 ms QTC Calculation(Bazett) 447 ms P Frederick 13 degrees R Frederick 17 degrees T Frederick 23 degrees Sinus rhythm with occasional Premature ventricular complexes Borderline criteria for Inferior infarct , age undetermined Abnormal ECG No previous ECGs available Confirmed by Zeynep ELIAS, HERVE ([id number]) on 05/02/2018 9:21:39 AM Performing Organization Address [facility] Phone Number GE MUSE Type and screen, automated (05/01/2018 5:45 AM CDT) ABO/RH AUTOMATED (BEAKER) O POSITIVE [facility] Ab Scrn NEGATIVE [facility] Specimen Blood Performing Organization Address [facility] Phone Number [address] [address] [phone] aPTT (05/01/2018 5:45 AM CDT) PTT 30.5 22.5 - 36.0 seconds [facility] Specimen Blood - Arm, Right Performing Organization Address [facility] Phone Number [facility] [address] [place] [id number] CENTER Prothrombin time/INR (05/01/2018 5:45 AM CDT) Protime 14.2 11.7 - 14.7 seconds [facility] INR 1.1 <=5.9 [facility] Specimen Blood - Arm, Right Narrative Performed At [facility] RECOMMENDED COUMADIN/WARFARIN INR THERAPY RANGES STANDARD DOSE: 2.0 - 3.0 Includes: PROPHYLAXIS for venous thrombosis, systemic embolization; TREATMENT for venous thrombosis and/or pulmonary embolus. HIGH RISK: Target INR is 2.5-3.5 for patients with mechanical heart valves. Performing Organization Address City/State/Zipcode Phone Number [facility] [address] [place] [address] CENTER after 12/03/2017
[2018-12-04] MEDS ORDERED: NITROGLYCERIN 0.4 MG/TAB SL ONE (15:28)
[2018-12-04] MEDS ORDERED: ASPIRIN 81 MG CHEWABLE TABLET ONE (15:28)
--- NOTE | 2018-12-04 15:43 | RAD REPORT ---
EXAM DESCRIPTION: RAD - Chest Single View - 12/04/2018 3:28 pm CLINICAL HISTORY: Chest pain COMPARISON: April 2018 TECHNIQUE: AP portable chest image was obtained 1526 hours . FINDINGS: No failure, infiltrate or mass identified. Significant right hemidiaphragm elevation noted and stable. Heart and vasculature are normal. No measurable pleural effusion and no pneumothorax. No acute bony abnormality seen. No acute aortic findings suspected. Moderately large hiatal hernia agai n noted. IMPRESSION: No acute cardiopulmonary process. No significant change from comparison.
[2018-12-04 15:44] LABS: Absolute Lymphocytes (CBC) 2.1 K/uL (0.7-4.9); Absolute Monocytes 0.6 K/uL (0.1-1.3); Absolute Neutrophil 2.1 K/uL (1.8-8.0); Basophils % 0.6 % (0-1.3); Eosinophils % 1.9 % (0-4.4); Lymphocytes % 42.4 % (15.3-44.8); MPV 8.2 fL (7.6-11.3); Monocytes % 11.8 % (3.3-12.3); RBC Red Blood Cell Count 4.52 M/uL (4.33-5.43)
[2018-12-04 15:46] LABS: Protime INR 0.97
[2018-12-04 16:05] LABS: ALT/SGPT 25 U/L (12-78); AST/SGOT 18 U/L (15-37); Albumin 3.7 g/dL (3.4-5.0); Alkaline Phosphatase 111 U/L (45-117); BUN Blood Urea Nitrogen 15 mg/dL (7-18); Bicarbonate 26 mmol/L (21-32); Bilirubin Direct < 0.1 mg/dL (0-0.2); Bilirubin Total 0.2 mg/dL (0.2-1.0); Glucose Level 98 mg/dL (74-106); Magnesium 2.1 mg/dL (1.8-2.4); NT PRO-BNP 23 pg/mL (<125); Protein, Total 7.2 g/dL (6.4-8.2); Sodium Level 140 mmol/L (136-145); Troponin (Emerg Dept Use Only) < 0.02 ng/mL (0.0-0.045)
[2018-12-04 16:29] LABS: Anisocytosis SLIGHT; Blood Morphology Comment NOTED (NOT SEEN); Platelet Estimate ADEQ; Urine White Blood Cell Casts OK
[2018-12-04 16:30] LABS: Hypochromasia 2+
--- NOTE | 2018-12-04 17:03 | EKG ---
Test Date: 2018-12-04 Test Time: 15:26:38 Drier Tender Naphthalene: TC MEASUREMENT RESULTS: Intervals: Rate: 78 MT: 148 QRSD: 88 QT: 404 QTc: 460 [place]: P: 19 MT: 148 QRS: 18 T: 40 INTERPRETIVE STATEMENTS: Normal sinus rhythm Normal ECG Compared to ECG 04/30/2018 14:31:18 Myocardial infarct finding no longer present Electronically Signed On 12-04-18 17:02:42 BAND AID MACHINE OPERATOR by Brandon Damon
--- NOTE | 2018-12-04 17:50 | EDPHYS ---
Physician Documentation [facility] Name: Binu Vitale Age: 62 yrs Sex: Male : 1955 Arrival Date: 12/04/2018 Time: 15:04 Bed 14 Private MD: ED Physician Donal Leung HPI: 12/04 15:18 This 62 yrs old Male presents to ER via Unassigned with complaints of chest jr8 pain. 15:18 The patient or guardian reports chest pain that is located primarily in the substernal jr8 area. Onset: acutely, yesterday. The pain radiates to the left arm, jaw. Associated signs and symptoms: The patient has no apparent associated signs or symptoms. The chest pain is described as a heaviness, a pressure. Duration: The patient or guardian reports a single episode, that is still ongoing. Modifying factors: The symptoms are alleviated by nothing. the symptoms are aggravated by nothing. Severity of pain: At its worst the pain was moderate in the emergency department the pain is unchanged. The patient has experienced a previous episode, many years ago. The patient has not recently seen a physician. History of OK in past. Started to have chest pressure, left arm heaviness, and generalized jaw pain yesterday that is not going away . Historical: - Allergies: 15:24 No Known Allergies; ph - Home Meds: 19:15 metoprolol tartrate 100 mg Oral tab 1 tab once daily [Active]; losartan 50 mg oral tab cc3 1 tab once daily [Active]; Xanax 2 mg Oral tab 1 tab at bedtime [Active]; alprazolam 0.5 mg Oral tab 1 tab TID prn [Active]; ibuprofen 800 mg Oral tab 1 tab 3 times per day [Active]; Lasix 20 mg Oral tab 1 tab once daily [Active]; losartan 50 mg Oral tab 1 tab once daily [Active]; metoprolol tartrate 100 mg Oral tab 1 tab once daily [Active]; pantoprazole 40 mg Oral TbEC 1 tab once daily [Active]; pravastatin 20 mg Oral tab 1 tab nightly [Active]; - PMHx: 15:24 Anxiety; Depression; Gastric Reflux; hiatal hernia; Hypertension; Myocardial ph infarction; TIA; - PSHx: 15:24 EGD; Hernia repair; ph - Immunization history:: Adult Immunizations up to date. - Social history:: Smoking status: Patient/guardian denies using tobacco. - Ebola Screening: : Patient negative for fever greater than or equal to 101.5 degrees Fahrenheit, and additional compatible Ebola Virus Disease symptoms. ROS: 15:18 Eyes: Negative for injury, pain, redness, and discharge, ENT: Negative for injury, jr8 pain, and discharge, Neck: Negative for injury, pain, and swelling, Respiratory: Negative for shortness of breath, cough, wheezing, and pleuritic chest pain, Abdomen/GI: Negative for abdominal pain, nausea, vomiting, diarrhea, and constipation, Back: Negative for injury and pain, MS/Extremity: Negative for injury and deformity, Skin: Negative for injury, rash, and discoloration, Neuro: Negative for headache, weakness, numbness, tingling, and seizure. 15:18 Cardiovascular: Positive for chest pain, Negative for edema, orthopnea, palpitations, paroxysmal nocturnal dyspnea. Exam: 15:18 Eyes: Pupils equal round and reactive to light, extra-ocular motions intact. Lids and jr8 lashes normal. Conjunctiva and sclera are non-icteric and not injected. Cornea within normal limits. Periorbital areas with no swelling, redness, or edema. ENT: Nares patent. No nasal discharge, no septal abnormalities noted. Tympanic membranes are normal and external auditory canals are clear. Oropharynx with no redness, swelling, or masses, exudates, or evidence of obstruction, uvula midline. Mucous membranes moist. Neck: Trachea midline, no thyromegaly or masses palpated, and no cervical lymphadenopathy. Supple, full range of motion without nuchal rigidity, or vertebral point tenderness. No Meningismus. Cardiovascular: Regular rate and rhythm with a normal S1 and S2. No gallops, murmurs, or rubs. Normal PMI, no JVD. No pulse deficits. Respiratory: Lungs have equal breath sounds bilaterally, clear to auscultation and percussion. No rales, rhonchi or wheezes noted. No increased work of breathing, no retractions or nasal flaring. Abdomen/GI: Soft, non-tender, with normal bowel sounds. No distension or tympany. No guarding or rebound. No evidence of tenderness throughout. Back: No spinal tenderness. No costovertebral tenderness. Full range of motion. Skin: Warm, dry with normal turgor. Normal color with no rashes, no lesions, and no evidence of cellulitis. MS/ Extremity: Pulses equal, no cyanosis. Neurovascular intact. Full, normal range of motion. Neuro: Awake and alert, GCS 15, oriented to person, place, time, and situation. Cranial nerves II-XII grossly intact. Motor strength 5/5 in all extremities. Sensory grossly intact. Cerebellar exam normal. Normal gait. Vital Signs: 15:24 BP 138 / 83; Pulse 72; Resp 18; Temp 98.7; Pulse Ox 96% on R/A; Weight 89.36 kg; Height ph 5 ft. 8 in. (172.72 cm); 15:30 BP 124 / 75; Pulse 78; Resp 19; Pulse Ox 95% ; Pain 7/10; rb1 16:00 BP 117 / 81; Pulse 76; Resp 19; Pulse Ox 96% on R/A; Pain 0/10; rb1 17:00 BP 118 / 84; Pulse 70; Resp 16; Pulse Ox 95% on R/A; rb1 18:00 BP 128 / 83; Pulse 71; Resp 17; Pulse Ox 97% on R/A; rb1 19:00 BP 135 / 77; Pulse 64; Resp 16; Pulse Ox 97% ; Pain 0/10; rb1 19:30 BP 142 / 85; Pulse 68; Resp 19 S; Temp 98.5(O); Pulse Ox 96% on R/A; Pain 0/10; cc3 20:12 BP 139 / 77; Pulse 68; Resp 17 S; Pulse Ox 96% on R/A; cc3 15:24 Body Mass Index 29.95 (89.36 kg, 172.72 cm) ph NIH Stroke Scale Scores: 15:18 NIHSS Score: 0 jr8 MDM: 15:06 Patient medically screened. jr8 17:49 The patient was given aspirin in the Emergency Department. Data reviewed: vital signs, jr8 nurses notes, lab test result(s), EKG, radiologic studies, plain films. Data interpreted: Pulse oximetry: on room air is 95 %. Interpretation: normal. Counseling: I had a detailed discussion with the patient and/or guardian regarding: the historical points, exam findings, and any diagnostic results supporting the discharge/admit diagnosis, lab results, radiology results, the need for further work-up and treatment in the hospital. 12/04 15:18 Order name: Basic Metabolic Panel; Complete Time: 16:08 12/04 15:18 Order name: CBC with Diff 12/04 15:18 Order name: LFT's; Complete Time: 16:08 12/04 15:18 Order name: Magnesium; Complete Time: 16:08 12/04 15:18 Order name: NT PRO-BNP; Complete Time: 16:08 12/04 15:18 Order name: PT-INR 12/04 15:18 Order name: Troponin (emerg Dept Use Only); Complete Time: 16:08 12/04 15:18 Order name: XRAY Chest (1 view) 12/04 15:45 Order name: RAD; Complete Time: 15:57 EDME 12/04 15:50 Order name: Protime (+INR); Complete Time: 15:57 EDMS 12/04 15:55 Order name: CBC with Automated Diff; Complete Time: 16:34 EDME 12/04 16:05 Order name: CBC Smear Scan; Complete Time: 16:34 EDME 12/04 15:18 Order name: EKG; Complete Time: 15:19 12/04 15:18 Order name: Cardiac monitoring; Complete Time: 15:24 12/04 15:18 Order name: EKG - Nurse/Tech; Complete Time: 15:24 12/04 15:18 Order name: IV Saline Lock; Complete Time: 15:36 12/04 15:18 Order name: Labs collected and sent; Complete Time: 15:36 12/04 15:18 Order name: O2 Per Protocol; Complete Time: 15:24 12/04 15:18 Order name: O2 Sat Monitoring; Complete Time: 15:24 12/04 19:07 Order name: Heart Healthy EDMS Administered Medications: 15:20 Drug: Aspirin Chewable Tablet 324 mg Route: PO; rb1 15:45 Follow up: Response: No adverse reaction rb1 15:20 Drug: Nitroglycerin 0.4 mg Route: Sublingual; rb1 15:45 Follow up: Response: No adverse reaction; Pain is decreased rb1 17:57 Drug: Lovenox 1 mg/kg Route: Sub-Q; Site: right lower abdomen; rb1 18:20 Follow up: Response: No adverse reaction rb1 Disposition: 12/05 06:45 Co-signature as Attending Physician, Donal Leung MD I agree with the assessment and kdr plan of care. Disposition: 12/04/18 17:49 Hospitalization ordered by Rk Lemons for Observation. Preliminary diagnosis are Angina pectoris, Unstable angina. - Bed requested for Telemetry/MedSurg (observation). - Status is Observation. cc3 - Condition is Stable. - Problem is new. - Symptoms have improved. UTI on Admission? No NIH Stroke Scale - NIH Stroke Score Date: 12/04/2018 Time: 15:18 Total Score = 0 1a. Level of Consciousness (LOC) - 0(Alert) 1b. Level of Consciousness (LOC) (Year \T\ Age) - 0(Both) 1c. LOC Commands (Open \T\ Closes Eyes/Heavy Duty Diesel Mechanic) - 0(Both) 2. Best Gaze (Lateral Gaze Paresis) - 0(Normal) 3. Visual Field Loss - 0(No visual loss) 4. Facial Palsy - 0(Normal) 5a. Left Arm: Motor (10-second hold) - 0(No drift) 5b. Right Arm: Motor (10-second hold) - 0(No drift) 6a. Left Leg: Motor (5-second hold - always test supine) - 0(No drift) 6b. Right Leg: Motor (5-second hold - always test supine) - 0(No drift) 7. Limb Ataxia (finger/nose \T\ heel/jimenez - test with eyes open) - 0(Absent) 8. Sensory Loss (pinprick arms/legs/face) - 0(Normal) 9. Best Language: Aphasia (description/naming/reading) - 0(No aphasia) 10. Dysarthria (speech clarity - read or repeat words) - 0(Normal) 11. Extinction and Inattention (visual/tactile/auditory/spatial/personal) - 0(No abnormality) Initials: jr8 Signatures: Dispatcher [employer] Concepcion Gatica RN RN dw Rittger, Kevin, MD MD [facility] Gautam Shannon PA PA jr8 Heidi Rivers RN RN Juju Toro RN RN rb1 Marlene Guzman cc3 Corrections: (The following items were deleted from the chart) 12/04 15:20 15:18 History of OK in past. jr8 jr8 17:49 17:49 Hospitalization Ordered by Prema Diaz MD for Observation. Preliminary jr8 diagnosis is Angina pectoris. Bed requested for Telemetry/MedSurg (observation). Status is Observation. Condition is Stable. Problem is new. Symptoms have improved. UTI on Admission? No. jr8 18:31 17:49 12/04/2018 17:49 Hospitalization Ordered by Prema Diaz MD for jr8 Observation. Preliminary diagnosis is Angina pectoris; Unstable angina. Bed requested for Telemetry/MedSurg (observation). Status is Observation. Condition is Stable. Problem is new. Symptoms have improved. UTI on Admission? No. jr8 19:27 18:31 12/04/2018 17:49 Hospitalization Ordered by Rk Lemons MD for dw Observation. Preliminary diagnosis is Angina pectoris; Unstable angina. Bed requested for Telemetry/MedSurg (observation). Status is Observation. Condition is Stable. Problem is new. Symptoms have improved. UTI on Admission? No. jr8 20:30 19:27 12/04/2018 17:49 Hospitalization Ordered by Rk Lemons MD for cc3 Observation. Preliminary diagnosis is Angina pectoris; Unstable angina. Bed requested for Telemetry/MedSurg (observation). Status is Observation. Condition is Stable. Problem is new. Symptoms have improved. UTI on Admission? No. dw
--- NOTE | 2018-12-04 17:50 | ER ---
Nurse's Notes [facility] Name: Binu Vitale Age: 62 yrs Sex: Male : 1955 Arrival Date: 12/04/2018 Time: 15:04 Bed 14 Private MD: Diagnosis: Angina pectoris;Unstable angina Presentation: 12/04 15:21 Presenting complaint: Patient states: Stephen jaw tightness, chest pressure and heaviness ph in L arm that began yesterday morning, also reports N/V and cough. Transition of care: patient was not received from another setting of care. Onset of symptoms was December 04, 2018. Risk Assessment: Do you want to hurt yourself or someone else? Patient reports no desire to harm self or others. Initial Sepsis Screen: Does the patient meet any 2 criteria? No. Patient's initial sepsis screen is negative. Does the patient have a suspected source of infection? No. Patient's initial sepsis screen is negative. Care prior to arrival: None. 15:21 Method Of Arrival: Ambulatory ph 15:21 Acuity: BASHIR 3 ph Historical: - Allergies: 15:24 No Known Allergies; ph - Home Meds: 19:15 metoprolol tartrate 100 mg Oral tab 1 tab once daily [Active]; losartan 50 mg oral tab cc3 1 tab once daily [Active]; Xanax 2 mg Oral tab 1 tab at bedtime [Active]; alprazolam 0.5 mg Oral tab 1 tab TID prn [Active]; ibuprofen 800 mg Oral tab 1 tab 3 times per day [Active]; Lasix 20 mg Oral tab 1 tab once daily [Active]; losartan 50 mg Oral tab 1 tab once daily [Active]; metoprolol tartrate 100 mg Oral tab 1 tab once daily [Active]; pantoprazole 40 mg Oral TbEC 1 tab once daily [Active]; pravastatin 20 mg Oral tab 1 tab nightly [Active]; - PMHx: 15:24 Anxiety; Depression; Gastric Reflux; hiatal hernia; Hypertension; Myocardial ph infarction; TIA; - PSHx: 15:24 EGD; Hernia repair; ph - Immunization history:: Adult Immunizations up to date. - Social history:: Smoking status: Patient/guardian denies using tobacco. - Ebola Screening: : Patient negative for fever greater than or equal to 101.5 degrees Fahrenheit, and additional compatible Ebola Virus Disease symptoms. Screenin:05 Abuse screen: Denies threats or abuse. Nutritional screening: No deficits noted. rb1 Tuberculosis screening: No symptoms or risk factors identified. Fall Risk None identified. Assessment: 15:05 General: Appears uncomfortable, Behavior is calm, cooperative, Denies fever. General: rb1 c/o chest pressure. Pain: Complains of pain in jaw. Pain: Pain currently is 7 out of 10 on a pain scale. Pain began 1 day ago. Neuro: Level of Consciousness is awake, alert, obeys commands, Oriented to person, place, time, situation. Neuro: Mash Tub Cooker are equal bilaterally Moves all extremities. Gait is steady, Speech is normal, Facial symmetry appears normal, Pupils are PERRLA. Cardiovascular: Reports nausea, since chest pressure that radiates to the back Capillary refill < 3 seconds is brisk in bilateral fingers. Respiratory: Airway is patent Respiratory effort is even, unlabored, Respiratory pattern is regular, symmetrical. GI: Reports nausea. : No signs and/or symptoms were reported regarding the genitourinary system. Derm: Skin is pink, warm \T\ dry. Musculoskeletal: Range of motion: intact in all extremities. 16:00 Reassessment: Patient appears in no apparent distress at this time. Patient and/or rb1 family updated on plan of care and expected duration. Pain level reassessed. Patient is alert, oriented x 3, equal unlabored respirations, skin warm/dry/pink. Patient denies pain at this time. 17:00 Reassessment: Patient appears in no apparent distress at this time. No changes from rb1 previously documented assessment. 18:00 Reassessment: Patient appears in no apparent distress at this time. Patient and/or rb1 family updated on plan of care and expected duration. Pain level reassessed. Patient is alert, oriented x 3, equal unlabored respirations, skin warm/dry/pink. Patient denies pain at this time. 19:15 Reassessment: Patient appears in no apparent distress at this time. Patient and/or cc3 family updated on plan of care and expected duration. Pain level reassessed. Patient is alert, oriented x 3, equal unlabored respirations, skin warm/dry/pink. Received this male patient from morning shift KALI Matute as a case of chest pressure for admission awaiting bed availability. With IV cannula gauge 22 at the right ACV saline locked. 19:40 Reassessment: Room available at 414, called for report but was told that the nurse who cc3 will receive will just call me back. 19:45 Reassessment: Report called and handed over to RN Betty Hernández for continuity of cc3 care. 20:25 Reassessment: Patient appears in no apparent distress at this time. Patient and/or cc3 family updated on plan of care and expected duration. Pain level reassessed. Patient is alert, oriented x 3, equal unlabored respirations, skin warm/dry/pink. Patient left ER for admission vitally stable by wheelchair escorted by printing technician Mirela. Vital Signs: 15:24 BP 138 / 83; Pulse 72; Resp 18; Temp 98.7; Pulse Ox 96% on R/A; Weight 89.36 kg; Height ph 5 ft. 8 in. (172.72 cm); 15:30 BP 124 / 75; Pulse 78; Resp 19; Pulse Ox 95% ; Pain 7/10; rb1 16:00 BP 117 / 81; Pulse 76; Resp 19; Pulse Ox 96% on R/A; Pain 0/10; rb1 17:00 BP 118 / 84; Pulse 70; Resp 16; Pulse Ox 95% on R/A; rb1 18:00 BP 128 / 83; Pulse 71; Resp 17; Pulse Ox 97% on R/A; rb1 19:00 BP 135 / 77; Pulse 64; Resp 16; Pulse Ox 97% ; Pain 0/10; rb1 19:30 BP 142 / 85; Pulse 68; Resp 19 S; Temp 98.5(O); Pulse Ox 96% on R/A; Pain 0/10; cc3 20:12 BP 139 / 77; Pulse 68; Resp 17 S; Pulse Ox 96% on R/A; cc3 15:24 Body Mass Index 29.95 (89.36 kg, 172.72 cm) ph NIH Stroke Scale Scores: 15:18 NIHSS Score: 0 [facility] ED Course: 15:04 Patient arrived in ED. ph 15:05 Gautam Shannon PA is PHCP. jr8 15:05 Donal Leung MD is Attending Physician. jr8 15:05 Patient has correct armband on for positive identification. Placed in gown. Bed in low rb1 position. Call light in reach. Side rails up X 1. teletypesetter monitor on. Pulse ox on. NIBP on. 15:06 Juju Toro, RN is Primary Nurse. rb1 15:20 Inserted saline lock: 22 gauge in right antecubital area, using aseptic technique. rb1 Blood collected. 15:23 Triage completed. ph 15:24 Arm band placed on Patient placed in an exam room, on a stretcher, in view of staff ph members, on pvc monitor, on pulse oximetry. 15:25 X-ray completed. Portable x-ray completed in exam room. Patient tolerated procedure mh1 well. 15:33 EKG done, by emg technician. reviewed by Gautam GREENFIELD. tc 17:49 Prema Diaz MD is Hospitalizing Provider. jr8 18:31 Rk Lemons MD is Hospitalizing Provider. jr8 19:00 Report given to KALI Rosario. rb1 20:05 No provider procedures requiring assistance completed. Patient admitted, IV remains in cc3 place. Administered Medications: 15:20 Drug: Aspirin Chewable Tablet 324 mg Route: PO; rb1 15:45 Follow up: Response: No adverse reaction rb1 15:20 Drug: Nitroglycerin 0.4 mg Route: Sublingual; rb1 15:45 Follow up: Response: No adverse reaction; Pain is decreased rb1 17:57 Drug: Lovenox 1 mg/kg Route: Sub-Q; Site: right lower abdomen; rb1 18:20 Follow up: Response: No adverse reaction rb1 Outcome: 17:49 Decision to Hospitalize by Provider. jr8 20:05 Admitted to Tele accompanied by tech, via wheelchair, room 414, with chart, Report cc3 called to Betty Hernández 20:05 Condition: stable 20:05 Instructed on the need for admit, Demonstrated understanding of instructions. 20:30 Patient left the ED. cc3 NIH Stroke Scale - NIH Stroke Score Date: 12/04/2018 Time: 15:18 Total Score = 0 1a. Level of Consciousness (LOC) - 0(Alert) 1b. Level of Consciousness (LOC) (Year \T\ Age) - 0(Both) 1c. LOC Commands (Open \T\ Closes Eyes/Cone Treater) - 0(Both) 2. Best Gaze (Lateral Gaze Paresis) - 0(Normal) 3. Visual Field Loss - 0(No visual loss) 4. Facial Palsy - 0(Normal) 5a. Left Arm: Motor (10-second hold) - 0(No drift) 5b. Right Arm: Motor (10-second hold) - 0(No drift) 6a. Left Leg: Motor (5-second hold - always test supine) - 0(No drift) 6b. Right Leg: Motor (5-second hold - always test supine) - 0(No drift) 7. Limb Ataxia (finger/nose \T\ heel/jimenez - test with eyes open) - 0(Absent) 8. Sensory Loss (pinprick arms/legs/face) - 0(Normal) 9. Best Language: Aphasia (description/naming/reading) - 0(No aphasia) 10. Dysarthria (speech clarity - read or repeat words) - 0(Normal) 11. Extinction and Inattention (visual/tactile/auditory/spatial/personal) - 0(No abnormality) Initials: jrGlenis Signatures: Haylee English 1 Gautam Shannon PA PA jr8 Nena Tipton, cash applications analyst EKG [facility] Heidi Rivers, RN RN Juju Toro, RN RN [facility] Marlene Guzman 3
[2018-12-04] MEDS ORDERED: ENOXAPARIN 100 MG/ML SYR SQ ONE (18:04)
--- NOTE | 2018-12-04 19:09 | P.HP ---
Certification for Inpatient Patient admitted to: Observation With expected LOS: <2 Midnights Practitioner: I am a practitioner with admitting privileges, knowledge of patient current condition, hospital course, and medical plan of care. Services: Services provided to patient in accordance with Admission requirements found in Title 42 Section 412.3 of the Code of Federal Regulations Patient History Date of Service: 12/05/18 Primary Care Provider: None Reason for admission: Chest pain History of Present Illness: This is a 62-year-old male with history of hypertension, mild [place] and hernia repair in the past along with a TIA history admitted for chest pain. Per patient, started having substernal chest pain with radiation to left arm and jaw bilaterally yesterday. Associated with some nausea, no vomiting. States that it was a pressure-like pain. Came to the ER, in the ED he received aspirin and nitro sublingual. Sublingual nitro reduced the and resolved all his pain. At the time of my exam, patient was alert oriented x3, hemodynamically stable and in no pain. Allergies ibuprofen Adverse Reaction (Verified 03/06/18 03:32) Nausea/Vomiting No Known Allergies Allergy (Uncoded 12/04/18 21:45) Unknown Home Medications: Alprazolam [Xanax] 2 mg PO BEDTIME PRN 03/06/18 Losartan Potassium [Cozaar*] 50 mg PO DAILY 03/06/18 Metoprolol Succinate [Toprol Xl] 100 mg PO DAILY 03/06/18 Duloxetine HCl [Cymbalta] 1 cap PO DAILY 12/04/18 - Past Medical/Surgical History Diabetic: No -: CAD -: GERD -: Anxiety -: depression -: hernia repair - Family History Mother -: Hypertension, Cancer Notes: Cancer of the Lymph Nodes Father Notes: Emphysema - Social History Alcohol use: No CD- Drugs: No Caffeine use: Yes Review of Systems 10-point ROS is otherwise unremarkable Physical Examination - Physical Exam General: Alert, In no apparent distress, Oriented x3 HEENT: Atraumatic, PERRLA, Mucous membr. moist/pink, EOMI, Sclerae nonicteric Neck: Supple, 2+ carotid pulse no bruit, No LAD, Without JVD or thyroid abnormality Respiratory: Clear to auscultation bilaterally, Normal air movement Cardiovascular: Regular rate/rhythm, Normal S1 S2 Gastrointestinal: Normal bowel sounds, No tenderness Musculoskeletal: No tenderness Integumentary: No rashes Neurological: Normal gait, Normal speech, Normal strength at 5/5 x4 extr, Normal tone, Normal affect Lymphatics: No axilla or inguinal lymphadenopathy - Studies Laboratory Data (last 24 hrs) 12/04/18 15:30: PT 11.4, INR 0.97 12/04/18 15:30: WBC 4.9, Hgb 8.6 L, Hct 28.0 L, Plt Count 336 12/04/18 15:30: Sodium 140, Potassium 4.0, BUN 15, Creatinine 0.96, Glucose 98, Magnesium 2.1, Total Bilirubin 0.2, AST 18, ALT 25, Alkaline Phosphatase 111 Assessment and Plan - Problems (Diagnosis) (1) Chest pain Onset Date: 03/06/18 Current Visit: No Status: Acute Qualifiers: Chest pain type: unspecified Qualified Code(s): R07.9 - Chest pain, unspecified (2) Hypertension Onset Date: 12/05/18 Current Visit: Yes Status: Acute Qualifiers: Hypertension type: essential hypertension Qualified Code(s): I10 - Essential (primary) hypertension (3) Depression Onset Date: 12/05/18 Current Visit: Yes Status: Acute Qualifiers: Depression Type: unspecified Qualified Code(s): F32.9 - Major depressive disorder, single episode, unspecified (4) Hyperlipidemia Current Visit: Yes Status: Acute (5) History of TIA (transient ischemic attack) Current Visit: Yes Status: Acute - Plan Admit to floor with tele Morphine, nitro prn CP guidelines: Metoprolol, lisinopril, Statin, ASA and plavix Stress test ordered ECHO ordered Dispo: Pending further evaluation, symptomatic improvement. Likely discharge home with echo and stress test negative. He will need outpatient follow up with primary care physician after discharge. - Advance Directives Does patient have a Living Will: No Does patient have a Durable POA for Healthcare: No Time Spent Managing Pts Care (In Minutes): 55
[2018-12-04] MEDS ORDERED: ONDANSETRON 4 MG/2 ML VIAL IV PRN (21:14)
[2018-12-04] MEDS ORDERED: ALPRAZOLAM 0.25 MG TABLET PO PRN (21:14)
[2018-12-04] MEDS ORDERED: NITROGLYCERIN 0.4 MG/TAB SL PRN (21:14)
[2018-12-04] MEDS ORDERED: MORPHINE 2 MG/ML SYR IV PRN (21:14)
[2018-12-04] MEDS ORDERED: ACETAMINOPHEN 500 MG TAB PO PRN (21:14)
[2018-12-04 22:25] LABS: Thyroid Stimulating Hormone 0.635 uIU/mL (0.360-3.740)
[2018-12-04 23:16] LABS: Urine Appearance CLEAR; Urine Bilirubin NEGATIVE (NEG); Urine Blood NEGATIVE (NEG); Urine Color YELLOW; Urine Glucose NEGATIVE (NEG); Urine Protein NEGATIVE (NEG); Urine Specific Gravity 1.025 (1.005-1.030); Urine Urobilinogen 0.2 mg/dL (0.2-1.0); Urine pH 5.5 (5.0-7.0)
[2018-12-04 23:48] LABS: Urine Bacteria <20 /HPF (NONE SEEN); Urine Culture Reflex Order NOT NEEDED; Urine Mucus LIGHT /HPF (NONE SEEN); Urine RBC NONE SEEN /HPF (NONE SEEN)
[2018-12-05] MEDS ORDERED: METOPROLOL TAR 25 MG TAB PO SCH (06:00)
[2018-12-05 06:40] LABS: Absolute Lymphocytes (CBC) 1.7 K/uL (0.7-4.9); Absolute Monocytes 0.5 K/uL (0.1-1.3); Absolute Neutrophil 2.4 K/uL (1.8-8.0); Basophils % 0.7 % (0-1.3); Eosinophils % 2.7 % (0-4.4); Hematocrit 27.9 % (39.6-49.0); Lymphocytes % 35.7 % (15.3-44.8); MPV 8.7 fL (7.6-11.3); Monocytes % 10.9 % (3.3-12.3); RBC Red Blood Cell Count 4.52 M/uL (4.33-5.43)
[2018-12-05 06:58] LABS: ALT/SGPT 23 U/L (12-78); AST/SGOT 17 U/L (15-37); Albumin 3.5 g/dL (3.4-5.0); Alkaline Phosphatase 97 U/L (45-117); BUN Blood Urea Nitrogen 13 mg/dL (7-18); Bicarbonate 27 mmol/L (21-32); Bilirubin Total 0.3 mg/dL (0.2-1.0); Glucose Level 90 mg/dL (74-106); HDL Cholesterol 50 mg/dL (40-60); LDL Cholesterol, Calculated 104 (<130); Potassium 3.9 mmol/L (3.5-5.1); Sodium Level 143 mmol/L (136-145)
[2018-12-05] MEDS ORDERED: CLOPIDOGREL 75 MG TABLET PO SCH (09:00)
[2018-12-05] MEDS ORDERED: ASPIRIN EC 81 MG TAB PO SCH (09:00)
[2018-12-05] MEDS ORDERED: LISINOPRIL 5 MG TAB PO SCH (09:00)
--- NOTE | 2018-12-05 09:46 | RAD REPORT ---
EXAM DESCRIPTION: NM - Rest Stress Cardiac Imaging - 12/05/2018 9:16 am CLINICAL HISTORY: Chest pain COMPARISON: None. TECHNIQUE: The patient was administered 10.7 mCi of Tc 99m Sestamibi prior to resting SPECT imaging of the heart. The patient was then administered 31.3 mCi of Tc 99m Sestamibi following exercise or ph armacologic stress. Multiplanar SPECT images were reviewed. FINDINGS: The end diastolic volume is 95 ml, the end systolic volume is 40 ml, and the ejection frac tion is 58 %. No stress-induced ischemic changes identifiable. Diminished activity along the inferior wall mid and base portion not clearly different between rest and stress imaging. This is favored to be attenuation artifact rather than inferior wall scarring. IMPRESSION: No stress-induced ischemic change. Fixed inferior wall defect in the base and midportion favored to be attenuation artifact of diaphragm rather than scarring. Normal range ventricular volumes and ejection fraction.
[2018-12-05] MEDS ORDERED: POTASSIUM CL SA 10 MEQ TAB PO ONE (10:00)
--- NOTE | 2018-12-05 11:34 | P.PN ---
Subjective Date of Service: 12/05/18 Primary Care Provider: None Chief Complaint: Chest pain Subjective: No C/O voiced, Improving Patient seen and examined at bedside. No family at bedside. Chart reviewed and case discussed with nursing staff. No acute events overnight, patient states chest pain has resolved and has not returned since he has been in the ER Review of Systems 10-point ROS is otherwise unremarkable Physical Examination - Vital Signs Temperature: 97.9 F Blood Pressure: 160/84 Pulse: 69 Respirations: 18 Pulse Ox (%): 97 - Physical Exam General: Alert, In no apparent distress, Oriented x3 HEENT: Atraumatic, PERRLA, EOMI Neck: Supple, JVD not distended Respiratory: Clear to auscultation bilaterally, Normal air movement Cardiovascular: Regular rate/rhythm, Normal S1 S2 Gastrointestinal: Normal bowel sounds, No tenderness Musculoskeletal: No tenderness Integumentary: No rashes Neurological: Normal speech, Normal tone, Normal affect Lymphatics: No axilla or inguinal lymphadenopathy - Studies Laboratory Data (last 24 hrs) 12/04/18 15:30: PT 11.4, INR 0.97 12/04/18 15:30: WBC 4.9, Hgb 8.6 L, Hct 28.0 L, Plt Count 336 12/04/18 15:30: Sodium 140, Potassium 4.0, BUN 15, Creatinine 0.96, Glucose 98, Magnesium 2.1, Total Bilirubin 0.2, AST 18, ALT 25, Alkaline Phosphatase 111 Assessment And Plan - Current Problems (Diagnosis) (1) Chest pain Onset Date: 03/06/18 Current Visit: No Status: Acute Qualifiers: Chest pain type: unspecified Qualified Code(s): R07.9 - Chest pain, unspecified (2) Hypertension Onset Date: 12/05/18 Current Visit: Yes Status: Acute Qualifiers: Hypertension type: essential hypertension Qualified Code(s): I10 - Essential (primary) hypertension (3) Depression Onset Date: 12/05/18 Current Visit: Yes Status: Acute Qualifiers: Depression Type: unspecified Qualified Code(s): F32.9 - Major depressive disorder, single episode, unspecified (4) Hyperlipidemia Current Visit: Yes Status: Acute (5) History of TIA (transient ischemic attack) Current Visit: Yes Status: Acute - Plan Troponins negative x3 Morphine, nitro prn CP guidelines: Metoprolol, lisinopril, Statin, ASA and plavix Stress test negative ECHO ordered, pending Dispo: Likely discharge home with echo and stress test negative. He will need outpatient follow up with primary care physician after discharge.
--- NOTE | 2018-12-05 15:00 | P.SSS ---
Patient History Date of Service: 12/05/18 Primary Care Provider: None Reason for admission: Chest pain History of Present Illness: This is a 62-year-old male with history of hypertension, mild [place] and hernia repair in the past along with a TIA history admitted for chest pain. Per patient, started having substernal chest pain with radiation to left arm and jaw bilaterally yesterday. Associated with some nausea, no vomiting. States that it was a pressure-like pain. Came to the ER, in the ED he received aspirin and nitro sublingual. Sublingual nitro reduced the and resolved all his pain. At the time of my exam, patient was alert oriented x3, hemodynamically stable and in no pain. Allergies ibuprofen Adverse Reaction (Verified 03/06/18 03:32) Nausea/Vomiting No Known Allergies Allergy (Uncoded 12/04/18 21:45) Unknown Home Medications: Alprazolam [Xanax] 2 mg PO BEDTIME PRN 03/06/18 Losartan Potassium [Cozaar*] 50 mg PO DAILY 03/06/18 Metoprolol Succinate [Toprol Xl] 100 mg PO DAILY 03/06/18 Duloxetine HCl [Cymbalta] 1 cap PO DAILY 12/04/18 Atorvastatin Calcium [Lipitor] 80 mg PO BEDTIME #30 tab 12/05/18 - Past Medical/Surgical History Diabetic: No -: CAD -: GERD -: Anxiety -: depression -: Pain Management for Lower Back and Neck -: hernia repair - Family History Mother -: Hypertension, Cancer Notes: Cancer of the Lymph Nodes Father Notes: Emphysema - Social History Smoking Status: Former smoker Alcohol use: No CD- Drugs: No Caffeine use: Yes Place of Residence: Home Review of Systems 10-point ROS is otherwise unremarkable Physical Examination - Vital Signs Temperature: 97.9 F Blood Pressure: 150/60 Pulse: 65 Respirations: 18 Pulse Ox (%): 97 - Physical Exam General: Alert, In no apparent distress, Oriented x3 HEENT: Atraumatic, PERRLA, Mucous membr. moist/pink, EOMI, Sclerae nonicteric Neck: Supple, 2+ carotid pulse no bruit, No LAD, Without JVD or thyroid abnormality Respiratory: Clear to auscultation bilaterally, Normal air movement Cardiovascular: Regular rate/rhythm, Normal S1 S2 Gastrointestinal: Normal bowel sounds, No tenderness Musculoskeletal: No tenderness Integumentary: No rashes Neurological: Normal gait, Normal speech, Normal strength at 5/5 x4 extr, Normal tone, Normal affect Lymphatics: No axilla or inguinal lymphadenopathy - Studies Laboratory Data (last 24 hrs) 12/04/18 15:30: PT 11.4, INR 0.97 12/04/18 15:30: WBC 4.9, Hgb 8.6 L, Hct 28.0 L, Plt Count 336 12/04/18 15:30: Sodium 140, Potassium 4.0, BUN 15, Creatinine 0.96, Glucose 98, Magnesium 2.1, Total Bilirubin 0.2, AST 18, ALT 25, Alkaline Phosphatase 111 - Diagnosis (Problem(s)) (1) Chest pain Onset Date: 03/06/18 Current Visit: No Status: Acute Qualifiers: Chest pain type: unspecified Qualified Code(s): R07.9 - Chest pain, unspecified (2) Hypertension Onset Date: 12/05/18 Current Visit: Yes Status: Acute Qualifiers: Hypertension type: essential hypertension Qualified Code(s): I10 - Essential (primary) hypertension (3) Depression Onset Date: 12/05/18 Current Visit: Yes Status: Acute Qualifiers: Depression Type: unspecified Qualified Code(s): F32.9 - Major depressive disorder, single episode, unspecified (4) Hyperlipidemia Current Visit: Yes Status: Acute (5) History of TIA (transient ischemic attack) Current Visit: Yes Status: Acute Treatment Summary: And was admitted for chest pain rule out ACS due to the fact hypertension, age, hyperlipidemia. He remained hemodynamically stable throughout the stay, troponins were negative x3 and his labs remained normal. The stress test was done, which was negative for any ischemic abnormalities. Echocardiogram was done, with normal ejection fraction. Patient was discharged with the addition of atorvastatin 80 mg. He was also extensively counseled on having a primary care physician to follow up with. Per patient, his insurance just kicked in today and he will be selecting a new primary care doctor to go follow up with. List of primary care physicians in this area was provided to patient. Prior to discharge, patient was hemodynamically stable, his chest pain had completely resolved, his troponins were negative x3, is tolerating a diet, ambulating without any concerns, his stress test was negative and his echo was normal. - Disposition Discharge Date: 12/05/18 Disposition: ROUTINE DISCHARGE Condition: GOOD Patient Discharge Instructions: Please select a primary care physician from the list provided or select one of your choice for a 1 week follow up after being discharged from the hospital. As discussed, I think it is very important that you do have follow up with a Primary care doctor. Please return to the emergency room for worsening symptoms. Diet: AHA Activity: Ad deisy Time Spent Managing Pts Care (In Minutes): 55
--- NOTE | 2018-12-05 15:33 | TREADMILL ---
70% H.R.: 109 85% H.R.: 133 90% H.R.: 140 100% H.R.: 156 DX: ANGINA Date of Study: 12/05/2018 Ht: 5 8 Wt: 197 lb 0 oz Consulting Physician: JUNIOR MEDICATIONS: TYLENOL, ASPIRIN, PLAVIX, PRINIVIL, LOPRESSOR, NITROSTAT, ZOFRAN, KLOR-CON HISTORY: 62 YEAR OLD MALE WITH COMPLAINTS OF UNSTABLE ANGINA. HISTORY OF ANXIETY, DEPRESSION, GASTRIC REFLEX, HIATAL HERNIA, MYOCARDIAL INFRACTION, TRANSIENT ISCHEMIC ATTACK, NON SMOKER, NON DRINKER. PHYSICIAL EXAMINATION: RESTING B.P.: 167/103 RESTING H.R.: 95 RESTING EKG: NORMAL PROTOCOL: MELODY CARDIOLITE EXERCISE TIME: 4:22 MAXIMUM HEART RATE: 144 92 % OF PREDICTED B.P. AT PEAK STRESS: 160/95 H.R. AT 1 MINUTE POST EXERCISE: 137 IMPRESSION: TREADMILL STOPPED DUE TO TARGET HEART RATE BEING REACHED. CARDIOLITE INJECTED PER PROTOCOL. SEE NUCLEAR MEDICINE REPORT. NO SUPRAVENTRICULAR TACHYCARDIA. NO VENTRICULAR TACHYCARDIA. NO CHEST PAIN. FEW PREMATURE ATRIAL COMPLEXES AND PREMATURE VENTRICULAR COMPLEXES PRIOR TO PROCEDURE AND DURING RECOVERY. NO ST CHANGES WITH STRESS. NORMAL STRESS TEST.
--- NOTE | 2018-12-05 15:36 | ECHO ---
HEIGHT: 5 ft 8 in WEIGHT: 197 lb 0 oz DATE OF STUDY: 12/05/[address]: Rk Lemons MD 2-DIMENSIONAL: YES M.MODE: YES DOPPLER: YES COLOR FLOW: YES TDS: NO PORTABLE: NO DEFINITY: NO BUBBLE STUDY: NO DIAGNOSIS: ANGINA CARDIAC HISTORY: CATHERIZATION: NO SURGERY: NO PROSTHETIC VALVE: NO PACEMAKER: NO MEASUREMENTS (cm) DIASTOLIC (NORMALS) SYSTOLIC (NORMALS) IVSd 1.1 (0.6-1.2) LA Diam 3.6 (1.9-4.0) LVEF 80% LVIDd 4.7 (3.5-5.7) LVIDs 2.4 (2.0-3.5) %FS 48% LVPWd 1.2 (0.6-1.2) Ao Diam 4.1 (2.0-3.7) 2 DIMENSIONAL ASSESSMENT: RIGHT ATRIUM: NORMAL LEFT ATRIUM: NORMAL RIGHT VENTRICLE: NORMAL LEFT VENTRICLE: NORMAL TRICUSPID VALVE: NORMAL MITRAL VALVE: NORMAL PULMONIC VALVE: NORMAL AORTIC VALVE: NORMAL PERICARDIAL EFFUSION: NONE AORTIC ROOT: NORMAL LEFT VENTRICULAR WALL MOTION: NORMAL DOPPLER/COLOR FLOW: PHYSIOLOGIC TRICUSPID REGURGITATION. NORMAL RIGHT VENTRICULAR SYSTOLIC PRESSURE. COMMENTS: NORMAL 2D ECHOCARDIOGRAM WITH DOPPLER. TECHNOLOGIST: Nahed ELKINS
[2018-12-05] MEDS ORDERED: ATORVASTATIN 80 MG TAB PO SCH (21:00)
== END 2018-12-05 16:37 | disposition home or self-care (01) ==
LOC: ER 15:01 → ERHOLD 18:59 → 4TH 19:54
PROVIDERS: ADMIT Family Medicine; ATTEND Family Medicine
DX: R07.9 Chest pain, unspecified (principal); I10 Essential (primary) hypertension; I25.10 Atherosclerotic heart disease of native coronary artery without angina pectoris; F41.8 Other specified anxiety disorders; I25.2 Old myocardial infarction; Z86.73 Personal history of transient ischemic attack (TIA), and cerebral infarction without residual deficits; E78.5 Hyperlipidemia, unspecified; Z87.891 Personal history of nicotine dependence
CPT/HCPCS: 36415; 71045; 78452; 80048; 80053; 80061; 80076; 81001; 83735; 83880; 84439; 84443; 84484 ×3; 85025 ×2; 85610; 93005; 93017; 93306; 94760 ×2; 96372; 99285; A9500; G0378 ×2; J1650